=== PATIENT | female | born 1950 | race Caucasian/White ===

== ENCOUNTER 2016-11-01 14:34 | Emergency (ER) | payer MEDICARE, OTHER ==
[~2016-11-01] VITALS: Ht 165.1 cm; Wt 73.0 kg
[~2016-11-01 14:34] MED LIST: DLN100 PO; HYDC25 PO; LAMO200T38 PO; POTA-327 PO
[2016-11-01 14:41] VITALS: TEMP 36.9; Ht 165.1 cm; Wt 73.0 kg
[2016-11-01] MEDS ORDERED: SODIUM CHLORIDE 0.9% 1000ML 1,000 ML IV STA (14:53)
[2016-11-01 15:15] VITALS: O2SAT 98
[2016-11-01] MEDS ORDERED: CHOL1000 PO (15:22)
[2016-11-01] MEDS ORDERED: VBRT100 PO (15:23)
[2016-11-01] MEDS ORDERED: FSMD/70 PO (15:23)
--- NOTE | 2016-11-01 15:27 | DIAGNOSTIC IMAGING REPORT ---
CHEST ONE VIEW PORTABLE CLINICAL HISTORY: Weakness. Trauma. COMPARISON STUDY: No previous studies for comparison. FINDINGS: The heart is normal in size. There is aortic tortuosity/ectasia. There is diffuse elevation of the interstitium, possibly secondary to pulmonary vascular congestion. A bilateral inflammatory process could appear similar. Clinical and radiographic follow-up is recommended[ IMPRESSION: 1. Moderate aortic tortuosity/ectasia 2. Diffuse elevation of the interstitium. This could be secondary to pulmonary vascular congestion or a bilateral inflammatory process. Clinical and radiographic follow-up is recommended. Electronically signed by: Ray Escobar M.D. 11/01/2016 3:24 PM Dictated Date/Time: 11/01/2016 3:23 PM
[2016-11-01 15:28] LABS: BASO % 0.4 %; BASO ABS # 0.03 K/uL (0-0.2); COMPLETE YES; EOS % 0.4 %; HEMATOCRIT 38.9 % (37-47); IG% 0.5 %; LYMPH % 20.4 %; LYMPH ABS # 1.67 K/uL (1.2-3.4); MEAN CELL VOLUME 95.6 fL (80-100); MEAN CORPUSCULAR HEMOGLOBIN 32.7 pg (25-34); MEAN CORPUSCULAR HGB CONC 34.2 g/dl (32-36); MEAN PLATELET VOLUME 9.3 fL (7.4-10.4); MONO % 10.5 %; NEUT % 67.8 %; PLATELET COUNT 236 K/uL (130-400); RED BLOOD COUNT 4.07 M/uL (4.2-5.4); WHITE BLOOD COUNT 8.17 K/uL (4.8-10.8)
[2016-11-01 15:36] LABS: INR 1.1 (0.9-1.1); PROTHROMBIN TIME (PATIENT) 11.3 SECONDS (9.0-12.0)
[2016-11-01 15:48] LABS: URINE APPEARANCE CLEAR (CLEAR); URINE BILIRUBIN NEG (NEG); URINE COLOR YELLOW; URINE NITRITE NEG (NEG); URINE SPECIFIC GRAVITY 1.012 (1.000-1.030); UROBILINOGEN NEG (NEG)
[2016-11-01 15:55] LABS: MANUAL MICROSCOPIC REQUIRED? NO; REVIEW REQ? NO
[2016-11-01 15:57] LABS: ALT/SGPT 24 U/L (12-78); BLOOD UREA NITROGEN 30 mg/dl (7-18); BUN/CREATININE RATIO 21.2 (10-20); CALCIUM 9.6 mg/dl (8.5-10.1); CHLORIDE 98 mmol/L (98-107)
[2016-11-01 15:58] LABS: GLUCOSE 98 mg/dl (70-99); POTASSIUM 3.9 mmol/L (3.5-5.1); SODIUM 137 mmol/L (136-145)
[2016-11-01 15:59] LABS: ALKALINE PHOSPHATASE 145 U/L (45-117); AST/SGOT 20 U/L (15-37); CARBON DIOXIDE 27 mmol/L (21-32); MAGNESIUM 1.6 mg/dl (1.8-2.4)
[2016-11-01] MEDS ORDERED: OPTIRAY 320 IV PRN (16:30)
--- NOTE | 2016-11-01 17:22 | DIAGNOSTIC IMAGING REPORT ---
HEAD CT NONCONTRAST CT DOSE: HISTORY: EVALUATE WEAKNESS TECHNIQUE: Multiaxial CT images of the head were performed without the use of intravenous contrast. Automated exposure control was utilized for this study. Comparison: None. Findings: Near complete opacification of the left maxillary sinus due to a fluid level. There is a small fluid level within the right maxillary sinus. The mastoid air cells are clear. The calvarium and skull base are intact. There is cerebellar atrophy. Marked dilatation of the right lateral ventricle with encephalomalacia of the right frontal lobe. 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 There is no mass, hematoma, midline shift shift, acute infarct. Impression: Chronic changes as described above. No acute intracranial abnormality. Bilateral acute maxillary sinusitis Electronically signed by: Raghav Sepulveda M.D. 11/01/2016 5:20 PM Dictated Date/Time: 11/01/2016 5:17 PM
--- NOTE | 2016-11-01 17:48 | DIAGNOSTIC IMAGING REPORT ---
CHEST, ABDOMEN, and PELVIS CTA for AORTIC DISSECTION CT DOSE: 3812.07 mGy.cm HISTORY: Atypical chest pain. TECHNIQUE: Multiaxial CT images of the chest, abdomen, and pelvis were performed both before and after the intravenous administration of contrast to evaluate the aorta. Maximal intensity projection images were also obtained. COMPARISON STUDY: Chest 11/01/2016. FINDINGS: No evidence for an intramural hematoma within the aorta. A 2.2 cm left adrenal gland nodule demonstrates average Hounsfield units of less than 10 on the noncontrast images. Therefore, this is consistent with a benign adenoma. The heart is mildly enlarged. No pleural or pericardial effusions. There is an old L1 mild compression deformity. The central pulmonary arteries are patent. Normal caliber aorta with no evidence for dissection. Mild calcified plaque at the bilateral renal arteries. A left retroaortic renal vein. The bilateral iliac arteries are patent. No mediastinal or hilar lymphadenopathy. No pneumothorax. The central airways are patent. Motion artifact seen within the lungs. There is a mosaic attenuation to the lungs suggestive of air trapping. A 6 mm left lower lobe pulmonary nodule on image 31 of 60. A 5 mm pulmonary nodule within the left lower lobe on image 149 of 606. Small patchy groundglass densities within the right middle lobe and right lower lobe. There is a 6 mm nodule within the right lower lobe on image 155. No pneumoperitoneum or pneumatosis. Old left anterior eighth and ninth rib fractures. Cholelithiasis. The liver, spleen, right adrenal gland, and pancreas are unremarkable. No renal stones or hydronephrosis. Bilateral renal hypodense lesions. There is a 3.8 cm hypodense lesion within the right kidney and a 2.3 cm hypodense lesion within the lower pole the left kidney. These are consistent with cysts. Some of the renal lesions are subcentimeter in size and therefore too small to characterize but also likely represent cysts. No retroperitoneal lymphadenopathy. The bladder, uterus, bilateral adnexa are unremarkable. Colonic diverticulosis. No bowel wall thickening or obstruction. Normal appendix. IMPRESSION: 1. No evidence for an aortic dissection. 2. No evidence for central pulmonary embolus. 3. Bilateral subcentimeter indeterminate pulmonary nodules with the largest measuring 6 mm. Please refer to the chart below for recommended follow-up. 4. Mosaic attenuation to the lungs suggestive of air trapping in the setting of small airways disease. 5. Small patchy density seen within the right middle lobe and right lower lobe. This may represent a developing pneumonia. 6. Cholelithiasis. 7. Additional findings as described above. Please refer to below summary of Fleischner criteria recommendations for follow-up of incidental CT nodules (Marylou Meyers, Guidelines for management of small pulmonary nodules detected on CT scans: A statement from the Fleischner Society, Radiology 237: [id number].) Low Risk Patient: Minimal or no smoking or other known risk factors for malignancy <=4 mm: No follow-up needed. >4-6 mm: Initial follow-up CT at 12 months; if unchanged, no further follow-up. >6-8 mm: Initial follow-up CT at 6-12 months then at 18-24 months if no change. >8 mm: Follow-up CT at \R\3, 9, 24 months, or PET and/or biopsy. High Risk Patient: History of smoking or other known risk factors <=4 mm: Follow-up at 12 months; if unchanged, no further follow-up. >4-6 mm: Initial follow-up CT at 6-12 months then at 18-24 months if no change. >6-8 mm: Initial follow-up CT at 3-6 months then at 9-12 and 24 months if no change. >8 mm: Same as low risk patient. Note: Nodule size measured as average of length and width. Ground glass or partly solid nodules may require longer follow-up to exclude indolent adenocarcinoma. Electronically signed by: Raghav Sepulveda M.D. 11/01/2016 5:46 PM Dictated Date/Time: 11/01/2016 5:33 PM
[2016-11-01] MEDS ORDERED: LEVOFLOXACIN 750 MG TAB PO STA (18:04)
[2016-11-01] MEDS ORDERED: LEVO750T23 PO (18:40)
[2016-11-01 20:16] VITALS: BP 112/78; PULSE 58; O2SAT 100
--- NOTE | 2016-11-01 22:43 | EMERGENCY ROOM VISIT NOTE ---
History Report prepared by Gerry: Sailaja Robertson Under the Supervision of: Dr. Honorio Mendez M.D. First contact with patient: 14:44 Chief Complaint: FALL Stated Complaint: FALL History of Present Illness The patient is a 66 year old female who presents to the Emergency Room with complaints of several falls that occurred prior to arrival. She has a history of cerebral palsy, seizures and an unsteady gait and has fallen 4 times so far today. She reports she "tripped over something" which is what caused each of her falls today, but the staff at her personal half-way, [facility], became concerned that this was unusual for her, so they brought her to the ED. The patient denies taking any seizures today or sustaining any injuries during each fall. She states she feels well currently, but has noticed some minor bruises over her body as the day has progressed. She denies any previous history of TIA's or CVA's. The patient notes she is currently on Doxycycline for "cold symptoms", prescribed by J[facility] Dorsey at [facility]. She denies any LOC, headache, fevers, chills, diaphoresis, visual changes, neck pain, chest pain, breathing difficulties, nausea, vomiting, abdominal pain, back pain, melena, hematochezia, urinary symptoms, numbness, weakness, lymphadenopathy, rash, or other complaints. Source of History: patient, nursing staff Onset: MEDIA BUYER Position: other (global) Timing: resolved Modifying Factors (Worsening): other (tripping over "something") Review of Systems See HPI for pertinent positives and negatives. A total of ten systems were reviewed and were otherwise negative. Past Medical & Surgical Medical Problems: (1) Cerebral palsy (2) Hypertension (3) Seizure disorder Social History Smoking Status: Never Smoker Alcohol Use: none Drug Use: none Marital Status: Housing Status: long-term Occupation Status: disabled Current/Historical Medications Scheduled Alendronate/Cholecalciferol (Fosamax+D 70MG/2800 Iu), 1 TABLET PO WK Cholecalciferol (Vitamin D3), 5,000 UNITS PO DAILY Doxycycline Hyclate (Doxycycline Hyclate), 100 MG PO BID Hydrochlorothiazide (Hctz *), 25 MG PO QAM Lamotrigine (Lamictal), 200 MG PO BID Levofloxacin (Levaquin), 1 TAB PO DAILY Phenytoin Sodium (Dilantin *), 100 MG PO BID Potassium Ext Rel (Klor-Con), 20 MEQ PO QAM Potassium Ext Rel (Klor-Con), 10 MEQ PO QPM Allergies Coded Allergies: Furosemide (Unverified Allergy, Severe, 11/01/16) Meclizine (Unverified Allergy, Unknown, UNKNOWN, 11/01/16) Primidone (Verified Allergy, Unknown, `, 06/24/11) Physical Exam Vital Signs Date Time Temp Pulse Resp B/P Pulse Ox O2 Delivery O2 Flow Rate FiO2 11/01/16 20:16 58 18 112/78 100 11/01/16 16:53 94 18 154/75 99 11/01/16 16:13 69 11/01/16 15:15 98 Room Air 11/01/16 14:41 36.9 69 18 172/84 98 Room Air Physical Exam GENERAL: Awake, alert, well-appearing, in no distress HENT: Normocephalic, atraumatic. Oropharynx unremarkable. Disconjugate gaze. EYES: Normal conjunctiva. Sclera non-icteric. PERRL. NECK: Supple. No nuchal rigidity. FROM. No JVD. RESPIRATORY: Clear to auscultation. CARDIAC: Regular rate, normal rhythm. Extremities warm and well perfused. Pulses equal. ABDOMEN: Soft, non-distended. No tenderness to palpation. No rebound or guarding. No masses. RECTAL: Deferred. MUSCULOSKELETAL: Chest examination reveals no tenderness. The back is symmetrical on inspection without obvious abnormality. There is no CVA tenderness to palpation. No joint edema. Abrasion on the left bicep, no tenderness. Abrasion on the right forearm, no tenderness. LOWER EXTREMITIES: Calves are equal size bilaterally and non-tender, good ROM. No edema. No discoloration. NEURO: Normal sensorium. Mild spasticity noted to the left hand. SKIN: No rash or jaundice noted. Medical Decision & Procedures ER Provider Diagnostic Interpretation: This X-Ray was reviewed and interpreted by myself and the radiologist. CHEST ONE VIEW PORTABLE CLINICAL HISTORY: Weakness. Trauma. COMPARISON STUDY: No previous studies for comparison. FINDINGS: The heart is normal in size. There is aortic tortuosity/ectasia. There is diffuse elevation of the interstitium, possibly secondary to pulmonary vascular congestion. A bilateral inflammatory process could appear similar. Clinical and radiographic follow-up is recommended. IMPRESSION: 1. Moderate aortic tortuosity/ectasia 2. Diffuse elevation of the interstitium. This could be secondary to pulmonary vascular congestion or a bilateral inflammatory process. Clinical and radiographic follow-up is recommended. Electronically signed by: Ray Escobar M.D. 11/01/2016 3:24 PM Dictated Date/Time: 11/01/2016 3:[address] scans were reviewed and interpreted by the radiologist and reviewed by myself. HEAD CT NONCONTRAST CT DOSE: HISTORY: EVALUATE WEAKNESS TECHNIQUE: Multiaxial CT images of the head were performed without the use of intravenous contrast. Automated exposure control was utilized for this study. Comparison: None. Findings: Near complete opacification of the left maxillary sinus due to a fluid level. There is a small fluid level within the right maxillary sinus. The mastoid air cells are clear. The calvarium and skull base are intact. There is cerebellar atrophy. Marked dilatation of the right lateral ventricle with encephalomalacia of the right frontal lobe. 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 There is no mass, hematoma, midline shift shift, acute infarct. Impression: Chronic changes as described above. No acute intracranial abnormality. Bilateral acute maxillary sinusitis Electronically signed by: Raghav Sepulveda M.D. 11/01/2016 5:20 PM Dictated Date/Time: 11/01/2016 5:17 PM CHEST, ABDOMEN, and PELVIS CTA for AORTIC DISSECTION CT DOSE: 3812.07 mGy.cm HISTORY: Atypical chest pain. TECHNIQUE: Multiaxial CT images of the chest, abdomen, and pelvis were performed both before and after the intravenous administration of contrast to evaluate the aorta. Maximal intensity projection images were also obtained. COMPARISON STUDY: Chest 11/01/2016. FINDINGS: No evidence for an intramural hematoma within the aorta. A 2.2 cm left adrenal gland nodule demonstrates average Hounsfield units of less than 10 on the noncontrast images. Therefore, this is consistent with a benign adenoma. The heart is mildly enlarged. No pleural or pericardial effusions. There is an old L1 mild compression deformity. The central pulmonary arteries are patent. Normal caliber aorta with no evidence for dissection. Mild calcified plaque at the bilateral renal arteries. A left retroaortic renal vein. The bilateral iliac arteries are patent. No mediastinal or hilar lymphadenopathy. No pneumothorax. The central airways are patent. Motion artifact seen within the lungs. There is a mosaic attenuation to the lungs suggestive of air trapping. A 6 mm left lower lobe pulmonary nodule on image 31 of 60. A 5 mm pulmonary nodule within the left lower lobe on image 149 of 606. Small patchy groundglass densities within the right middle lobe and right lower lobe. There is a 6 mm nodule within the right lower lobe on image 155. No pneumoperitoneum or pneumatosis. Old left anterior eighth and ninth rib fractures. Cholelithiasis. The liver, spleen, right adrenal gland, and pancreas are unremarkable. No renal stones or hydronephrosis. Bilateral renal hypodense lesions. There is a 3.8 cm hypodense lesion within the right kidney and a 2.3 cm hypodense lesion within the lower pole the left kidney. These are consistent with cysts. Some of the renal lesions are subcentimeter in size and therefore too small to characterize but also likely represent cysts. No retroperitoneal lymphadenopathy. The bladder, uterus, bilateral adnexa are unremarkable. Colonic diverticulosis. No bowel wall thickening or obstruction. Normal appendix. IMPRESSION: 1. No evidence for an aortic dissection. 2. No evidence for central pulmonary embolus. 3. Bilateral subcentimeter indeterminate pulmonary nodules with the largest measuring 6 mm. Please refer to the chart below for recommended follow-up. 4. Mosaic attenuation to the lungs suggestive of air trapping in the setting of small airways disease. 5. Small patchy density seen within the right middle lobe and right lower lobe. This may represent a developing pneumonia. 6. Cholelithiasis. 7. Additional findings as described above. Please refer to below summary of Fleischner criteria recommendations for follow-up of incidental CT nodules (Marylou Meyers, Guidelines for management of small pulmonary nodules detected on CT scans: A statement from the Fleischner Society, Radiology 237: [phone].) Low Risk Patient: Minimal or no smoking or other known risk factors for malignancy <=4 mm: No follow-up needed. >4-6 mm: Initial follow-up CT at 12 months; if unchanged, no further follow-up. >6-8 mm: Initial follow-up CT at 6-12 months then at 18-24 months if no change. >8 mm: Follow-up CT at \\R\\3, 9, 24 months, or PET and/or biopsy. High Risk Patient: History of smoking or other known risk factors <=4 mm: Follow-up at 12 months; if unchanged, no further follow-up. >4-6 mm: Initial follow-up CT at 6-12 months then at 18-24 months if no change. >6-8 mm: Initial follow-up CT at 3-6 months then at 9-12 and 24 months if no change. >8 mm: Same as low risk patient. Note: Nodule size measured as average of length and width. Ground glass or partly solid nodules may require longer follow-up to exclude indolent adenocarcinoma. Electronically signed by: Raghav Sepulveda M.D. 11/01/2016 5:46 PM Dictated Date/Time: 11/01/2016 5:33 PM Laboratory Results 11/01/16 15:00 Red Blood Count 4.07, Mean Corpuscular Volume 95.6, Mean Corpuscular Hemoglobin 32.7, Mean Corpuscular Hemoglobin Concent 34.2, Mean Platelet Volume 9.3, Neutrophils (%) (Auto) 67.8, Lymphocytes (%) (Auto) 20.4, Monocytes (%) (Auto) 10.5, Eosinophils (%) (Auto) 0.4, Basophils (%) (Auto) 0.4, Neutrophils # (Auto ) 5.54, Lymphocytes # (Auto) 1.67, Monocytes # (Auto) 0.86, Eosinophils # (Auto ) 0.03, Basophils # (Auto) 0.03 11/01/16 15:00 Test 11/01/16 15:00 11/01/16 15:30 White Blood Count 8.17 K/uL (4.8-10.8) Red Blood Count 4.07 M/uL (4.2-5.4) Hemoglobin 13.3 g/dL (12.0-16.0) Hematocrit 38.9 % (37-47) Mean Corpuscular Volume 95.6 fL (80-100) Mean Corpuscular Hemoglobin 32.7 pg (25-34) Mean Corpuscular Hemoglobin Concent 34.2 g/dl (32-36) Platelet Count 236 K/uL (130-400) Mean Platelet Volume 9.3 fL (7.4-10.4) Neutrophils (%) (Auto) 67.8 % Lymphocytes (%) (Auto) 20.4 % Monocytes (%) (Auto) 10.5 % Eosinophils (%) (Auto) 0.4 % Basophils (%) (Auto) 0.4 % Neutrophils # (Auto) 5.54 K/uL (1.4-6.5) Lymphocytes # (Auto) 1.67 K/uL (1.2-3.4) Monocytes # (Auto) 0.86 K/uL (0.11-0.59) Eosinophils # (Auto) 0.03 K/uL (0-0.5) Basophils # (Auto) 0.03 K/uL (0-0.2) RDW Standard Deviation 43.6 fL (36.4-46.3) RDW Coefficient of Variation 12.6 % (11.5-14.5) Immature Granulocyte % (Auto) 0.5 % Immature Granulocyte # (Auto) 0.04 K/uL (0.00-0.02) Prothrombin Time 11.3 SECONDS (9.0-12.0) Prothromb Time International Ratio 1.1 (0.9-1.1) Activated Partial Thromboplast Time 25.4 SECONDS (21.0-31.0) Partial Thromboplastin Ratio 1.0 Anion Gap 12.0 mmol/L (3-11) Est Creatinine Clear Calc Drug Dose 38.5 ml/min Estimated GFR () 44.6 Estimated GFR (Non- 38.5 BUN/Creatinine Ratio 21.2 (10-20) Calcium Level 9.6 mg/dl (8.5-10.1) Magnesium Level 1.6 mg/dl (1.8-2.4) Total Bilirubin 0.4 mg/dl (0.2-1) Direct Bilirubin mg/dl (0-0.2) Aspartate Amino Transf (AST/SGOT) 20 U/L (15-37) Alanine Aminotransferase (ALT/SGPT) 24 U/L (12-78) Alkaline Phosphatase 145 U/L (45-117) Troponin I < 0.015 ng/ml (0-0.045) Pro-B-Type Natriuretic Peptide 310 pg/ml (0-900) Total Protein 7.0 gm/dl (6.4-8.2) Albumin 3.3 gm/dl (3.4-5.0) Lipase 193 U/L (73-393) Thyroid Stimulating Hormone (TSH) 1.060 uIu/ml (0.300-4.500) Chemistry Specimen Hemolysis Phenytoin (Dilantin) Level 12.8 mcg/mL (10-20) Urine Color YELLOW Urine Appearance CLEAR (CLEAR) Urine pH 6.0 (4.5-7.5) Urine Specific [place] 1.012 (1.000-1.030) Urine Protein NEG (NEG) Urine Glucose (UA) NEG (NEG) Urine Ketones NEG (NEG) Urine Occult Blood 1+ (NEG) Urine Nitrite NEG (NEG) Urine Bilirubin NEG (NEG) Urine Urobilinogen NEG (NEG) Urine Leukocyte Esterase NEG (NEG) Urine WBC (Auto) 1-5 /hpf (0-5) Urine RBC (Auto) 5-10 /hpf (0-4) Urine Hyaline Casts (Auto) 1-5 /lpf (0-5) Urine Epithelial Cells (Auto) 5-10 /lpf (0-5) Urine Bacteria (Auto) NEG (NEG) Laboratory results reviewed by me Medications Administered Medications (Trade) Dose Ordered Sig/Rupert Route Start Time Stop Time Status Last Admin Dose Admin Sodium Chloride (Nss 1000ml) 1,000 ml @ 125 mls/hr Q8H STAT IV 11/01/16 14:53 11/01/16 20:47 DC 11/01/16 15:40 125 MLS/HR Levofloxacin (Levaquin Tab) 750 mg NOW STAT PO 11/01/16 18:04 11/01/16 18:07 DC 11/01/16 18:44 750 MG ECG Indication: weakness (fall) Rate (beats per minute): 69 Rhythm: sinus rhythm Findings: no acute ischemic change, no ectopy, other (LVH, poor baseline) ED Course 1450: The patient was evaluated in room B3B. A complete history and physical exam was performed. 1453: NSS 1000 ml @ 125 mls/hr IV. 1708: I reevaluated the patient. She has just come back from CT scan and is resting comfortably. 1804: Levaquin 750 mg PO. 1824: I reevaluated the patient. She is feeling much better. I discussed her results and discharge instructions and she verbalized complete agreement and understanding. Medical Decision Triage Nursing notes reviewed. The patient's presentation and history were concerning for multiple falls. Etiologies such as metabolic, infection, hypo/hyperglycemia, electrolyte abnormalities, cardiac sources, intracerebral event, toxicologic, neurologic, as well as others were entertained. Given the patient's history she underwent a full metabolic workup. Blood work was obtained. Her CBC, chemistry panel, urinalysis, cardiac markers, and BNP were negative. TSH is normal. The patient was doing very well. Dilantin is therapeutic. ECG and chest x-ray were unremarkable except she had a wide mediastinum. The patient underwent CT imaging. This revealed some pulmonary nodules but also small infiltrate. This may be why she has been slightly unsteady. She does not have any significant fever or leukocytosis. I discussed conservative management. The patient was hydrated. She feels well and comfortable going home. She'll need a close outpatient follow-up. She was treated with Levaquin.I gave my usual and customary discussion regarding this issue. By the evaluation outlined above other emergent etiologies such as those listed in the differential, as well as others, were deemed relatively unlikely. The patient was informed about the findings as listed above. All questions were answered and she was very pleased with the treatment. Return instructions were outlined and the patient was discharged in stable condition. The patient was referred to her PCP for follow-up for a recheck of the current condition. The chart was completed utilizing [employer] Speech voice recognition software. Grammatical errors, random word insertions, pronoun errors, and incomplete sentences are an occasional consequence of this system due to software limitations, ambient noise, and hardware issues. Any formal questions or concerns about the content, text, or information contained within the body of this dictation should be directly addressed to the physician for clarification. Impression Primary Impression: Pneumonia Additional Impressions: Fall, Ambulatory dysfunction Scribe Attestation The scribe's documentation has been prepared under my direction and personally reviewed by me in its entirety. I confirm that the note above accurately reflects all work, treatment, procedures, and medical decision making performed by me. Departure Information Dispostion Other (Prison) Prescriptions Levofloxacin (LEVAQUIN) 750 Mg Tab 1 TAB PO DAILY for 4 Days, #4 TAB Prov: Honorio Mendez MD 11/01/16 Referrals Ny HollidayC.R.N.PEmily (PCP) Patient Instructions A Signature Page, My [facility] Additional Instructions PNEUMONIA INSTRUCTIONS: CT of the chest scan did reveal a small area of pneumonia on the right side. There is also a 6 mm nodule noted on the bottom of the right and left lung. Follow-up is recommended with your primary physician for repeat chest imaging at 6-12 months and then again at 18-24 months. Dilantin level normal. CAT scan of the head was normal. Levafloxacin(Levaquin) 750mg: Take one pill daily for 4 additional days for your infection. All antibiotics can cause diarrhea. If this occurs and you feel worse or it does not resolve in 1-2 days follow up with your doctor or return to the Emergency Department as this could be signs of serious underlying problems. Any medication can cause an allergic reaction, stop the pills immediately and return to the ER for rash, hives, breathing difficulties, or swelling. Acetaminophen(Tylenol) may be used for fever or pain. Use 1000mg every six hours as needed. Avoid using more than 4000mg in a 24 hour period. Controlling your fever with Tylenol and Ibuprofen as above will make you feel better. Rest and drink plenty of fluids. Avoid strenuous activity until your symptoms resolve and your breathing returns to normal. Return to the ER for chest pain, difficulty breathing, persistent fevers, vomiting, worsening of your condition, or as needed. Continue current medications. Follow up with your primary physician this week as scheduled for a recheck of the current condition.
== END 2016-11-01 20:17 | disposition home or self-care (01) ==
LOC: EDBD 14:34 → C.EDB 14:35
DX: T14.8 Other injury of unspecified body region (principal); W01.0XXA Fall on same level from slipping, tripping and stumbling without subsequent striking against object, initial encounter; J18.9 Pneumonia, unspecified organism; I10 Essential (primary) hypertension; G40.909 Epilepsy, unspecified, not intractable, without status epilepticus; G80.9 Cerebral palsy, unspecified; Z79.899 Other long term (current) drug therapy; Z88.8 Allergy status to other drugs, medicaments and biological substances

== ENCOUNTER 2016-11-03 00:25 | Inpatient (IN) | payer OTHER ==
[~2016-11-03] VITALS: Ht 157.5 cm; Wt 90.8 kg
[2016-11-03] VITALS (8 sets, daily range): BP systolic 115–144; BP diastolic 59–91; PULSE 69–76; TEMP 36.3–36.7; O2SAT 95–99; Ht 157.5 cm; Wt 90.8 kg
[~2016-11-03 00:25] MED LIST changes: +CHOL1000 PO; +FSMD/70 PO; +LEVO750T23 PO; +VBRT100 PO
[2016-11-03] MEDS ORDERED: CALC600T9 PO (00:47)
[2016-11-03] MEDS ORDERED: ACET-1256 PO (00:49)
[2016-11-03] MEDS ORDERED: SODIUM CHLORIDE 0.9% 1000ML 1,000 ML IV STA (00:50)
[2016-11-03] MEDS ORDERED: ONDA4TAB46 PO (00:51)
[2016-11-03] MEDS ORDERED: HYDR1SUS2 PO (00:53)
[2016-11-03] MEDS ORDERED: PHEN-488 PO (01:04)
--- NOTE | 2016-11-03 01:12 | EMERGENCY ROOM VISIT NOTE ---
History Report prepared by Gerry: Lizette Fan Under the Supervision of: Dr. Seth Padilla M.D. First contact with patient: 00:43 Chief Complaint: FALL Stated Complaint: ALTERED MENTAL STATUS/SIDE PAIN/FALL History of Present Illness The patient is a 66 year old female who presents to the Emergency Room via EMS with complaints of right sided rib pain. She reports a fall and hitting her head. She denies headache, shoulder pain, back pain, or any other complaints. As per prior records, the patient has been on doxycycline for a cold for the past few days. She has had multiple increased falls. She was evaluated in the Emergency Room 2 days ago for a fall. She had a CT of chest, abdomen, and pelvis. The patient was diagnosed with a small pneumonia. She has a history of cerebral palsy. HPI is limited secondary to altered mental status. Source of History: patient History Limited By: AMS Position: other (right sided ribs) Associated Symptoms: No back pain, No headache Review of Systems ROS is limited secondary to altered mental status. Past Medical & Surgical Medical Problems: (1) Ambulatory dysfunction (2) Cerebral palsy (3) Fall (4) Hypertension (5) Pneumonia (6) Seizure disorder Family History Patient reports no known family medical history. Social History Smoking Status: Never Smoker Alcohol Use: none Drug Use: none Marital Status: Housing Status: senior living Occupation Status: disabled Current/Historical Medications Scheduled Alendronate/Cholecalciferol (Fosamax+D 70MG/2800 Iu), 1 TABLET PO WK Calcium Carbonate-Vitamin D (Calcium + D), 2 TABS PO DAILY Cholecalciferol (Vitamin D3), 5,000 UNITS PO DAILY Doxycycline Hyclate (Doxycycline Hyclate), 100 MG PO BID Hydrochlorothiazide (Hctz *), 25 MG PO QAM Lamotrigine (Lamictal), 200 MG PO BID Phenytoin Sodium (Dilantin *), 100 MG PO BID Potassium Ext Rel (Klor-Con), 20 MEQ PO QAM Potassium Ext Rel (Klor-Con), 10 MEQ PO QPM Scheduled PRN Acetaminophen (Tylenol), 1,000 MG PO q4-6 hours PRN for Pain or Fever Ondansetron Hcl (Zofran), 4 MG PO DIRECTED PRN for Nausea Phenylephrine W/ Dm-Gg (Tussin Cf), 10 ML PO Q4 PRN for Cough Allergies Coded Allergies: Furosemide (Unverified Allergy, Severe, 11/03/16) Meclizine (Unverified Allergy, Unknown, UNKNOWN, 11/03/16) Primidone (Verified Allergy, Unknown, `, 11/03/16) Physical Exam Vital Signs Date Time Temp Pulse Resp B/P Pulse Ox O2 Delivery O2 Flow Rate FiO2 11/03/16 03:10 72 20 161/62 94 Room Air 11/03/16 00:31 36.4 70 18 161/73 94 Room Air Physical Exam GENERAL: Patient is well appearing and in mild distress. HEENT: No acute trauma, normocephalic atraumatic, mucous membranes moist, no nasal congestion, no scleral icterus. NECK: No stridor, no adenopathy, no meningismus, trachea is midline. LUNGS: Crackles throughout bilateral lower bases. HEART: Regular rate and rhythm. No murmurs, rubs, gallops appreciated. CHEST: Tenderness to palpation of the right chest wall. ABDOMEN: Soft, nontender, bowel sounds positive, no masses appreciated, no peritonitis. BACK: No midline tenderness, no CVA tenderness EXTREMITIES: Normal motion all extremities, no cyanosis, no edema. NEUROLOGIC: MRCP, answers questions in yes and no. No acute motor or sensory deficits, no focal weakness, cranial nerves grossly intact. SKIN: No rash, no jaundice, no diaphoresis. Medical Decision & Procedures ER Provider Diagnostic Interpretation: X ray results are stated below per my interpretation: CHEST X-RAY Right perihilar infiltrate, similar to previous chest x-ray. No evidence of acute rib fracture nor pneumothorax appreciated. Overall similar to previous chest x-ray. ONE VIEW PELVIS X-RAY Mild degenerative changes, no fracture, no dislocation. Laboratory Results 11/03/16 01:10 Red Blood Count 4.15, Mean Corpuscular Volume 96.9, Mean Corpuscular Hemoglobin 32.5, Mean Corpuscular Hemoglobin Concent 33.6, Mean Platelet Volume 9.1, Neutrophils (%) (Auto) 78.5, Lymphocytes (%) (Auto) 11.0, Monocytes (%) (Auto) 9.4, Eosinophils (%) (Auto) 0.0, Basophils (%) (Auto) 0.5, Neutrophils # (Auto) 4.95, Lymphocytes # (Auto) 0.69, Monocytes # (Auto) 0.59, Eosinophils # (Auto) 0.00, Basophils # (Auto) 0.03 11/03/16 01:10 Test 11/03/16 01:09 11/03/16 01:10 Bedside Lactic Acid Venous 0.96 mmol/L (0.90-1.70) White Blood Count 6.30 K/uL (4.8-10.8) Red Blood Count 4.15 M/uL (4.2-5.4) Hemoglobin 13.5 g/dL (12.0-16.0) Hematocrit 40.2 % (37-47) Mean Corpuscular Volume 96.9 fL (80-100) Mean Corpuscular Hemoglobin 32.5 pg (25-34) Mean Corpuscular Hemoglobin Concent 33.6 g/dl (32-36) Platelet Count 231 K/uL (130-400) Mean Platelet Volume 9.1 fL (7.4-10.4) Neutrophils (%) (Auto) 78.5 % Lymphocytes (%) (Auto) 11.0 % Monocytes (%) (Auto) 9.4 % Eosinophils (%) (Auto) 0.0 % Basophils (%) (Auto) 0.5 % Neutrophils # (Auto) 4.95 K/uL (1.4-6.5) Lymphocytes # (Auto) 0.69 K/uL (1.2-3.4) Monocytes # (Auto) 0.59 K/uL (0.11-0.59) Eosinophils # (Auto) 0.00 K/uL (0-0.5) Basophils # (Auto) 0.03 K/uL (0-0.2) RDW Standard Deviation 44.9 fL (36.4-46.3) RDW Coefficient of Variation 12.8 % (11.5-14.5) Immature Granulocyte % (Auto) 0.6 % Immature Granulocyte # (Auto) 0.04 K/uL (0.00-0.02) Anion Gap 11.0 mmol/L (3-11) Est Creatinine Clear Calc Drug Dose 44.7 ml/min Estimated GFR () 48.8 Estimated GFR (Non- 42.1 BUN/Creatinine Ratio 21.1 (10-20) Calcium Level 9.0 mg/dl (8.5-10.1) Laboratory results as reviewed by me. Medications Administered Medications (Trade) Dose Ordered Sig/Rupert Route Start Time Stop Time Status Last Admin Dose Admin Sodium Chloride (Nss 1000ml) 1,000 ml @ 75 mls/hr [id number] STAT IV 11/03/16 00:50 11/03/16 03:36 DC 11/03/16 01:10 75 MLS/HR ED Course 0043: The patient was evaluated in room A10. A complete history and physical exam was performed. 0050: Sodium Chloride 1000 ml @ 75 mls/hr IV 0152: I discussed the patient's case with Dr. Blanton, from [facility]. Upon reevaluation, the patient is resting comfortably. Discussed results and treatment plan with the patient. The patient will be evaluated for further management. Medical Decision Differential: Sepsis, Infectious (UTI/Pneumonia/Meningitis/etc), Metabolic/ Electrolyte Abnormality, Cardiac, Hepatic, Endocrine, Toxicologic, Neurologic, amongst other pathologies entertained. 66 yr old female with MRCP who until recently has been doing quite well though was diagnosed with URI like illness and started on doxycycline. Starting 3 days ago stared having multiple falls a day to point where brought in here for further evaluation where she had extensive testing, labs, CTs, etc which revealed a right middle/lower pneumonia. Found laying next to bed again this evening. No evidence of head injury and she denies headache. Given she will be watched held off on repeating CT head as on no blood thinners. She has no clear evidence of fractured ribs via single view CXR though right mid perihilar inflammation continues. Mild dehydration by labs stable from other day. She is clearly failing monitoring with this pneumonia a senior living and in effort to avoid further falls/injuries seems that bringing her in will be safest option. She is not septic and no in severe distress. Consults Time Called: 131 Consulting Physician: Dr. Blanton, from [facility] Returned Call: 015 I discussed the patient's case with Dr. Blanton, from [facility]. Impression Primary Impression: Multiple falls Additional Impression: Failure of outpatient treatment Scribe Attestation The scribe's documentation has been prepared under my direction and personally reviewed by me in its entirety. I confirm that the note above accurately reflects all work, treatment, procedures, and medical decision making performed by me. Departure Information Dispostion Being Evaluated By Hospitalist Referrals Ny Holliday,C.R.N.P. (PCP) Patient Instructions A Signature Page, My [facility] [address] Problem Qualifiers
[2016-11-03 01:24] LABS: BASO % 0.5 %; BASO ABS # 0.03 K/uL (0-0.2); COMPLETE YES; HEMATOCRIT 40.2 % (37-47); IG% 0.6 %; LYMPH ABS # 0.69 K/uL (1.2-3.4); MEAN CELL VOLUME 96.9 fL (80-100); MEAN CORPUSCULAR HEMOGLOBIN 32.5 pg (25-34); MEAN CORPUSCULAR HGB CONC 33.6 g/dl (32-36); MEAN PLATELET VOLUME 9.1 fL (7.4-10.4); MONO % 9.4 %; NEUT % 78.5 %; PLATELET COUNT 231 K/uL (130-400); RED BLOOD COUNT 4.15 M/uL (4.2-5.4)
[2016-11-03 01:43] LABS: BUN/CREATININE RATIO 21.1 (10-20); CREATININE 1.3 mg/dl (0.60-1.20); POTASSIUM 3.6 mmol/L (3.5-5.1)
[2016-11-03] MEDS ORDERED: CEFTRIAXONE SOD INJ 1 GM in DEXTROSE 5% ADD-VANTAGE 50ML 50 ML IV SCH (04:00)
[2016-11-03] MEDS: NSS + 20MEQ KCL 1000ML 1,000 ML IV SCH ×2 (04:15→13:39)
--- NOTE | 2016-11-03 04:50 | History and Physical ---
History & Physical Date & Time of Service: Nov 03, 2016 at 04:40 Chief Complaint: Failure Of Op Treatment, [place] Primary Care Physician: Ny Holliday,Gris History of Present Illness Source: hospital records The patient is a 66-year-old female with history of cerebral palsy, who is brought to the emergency department via EMS with complaint of right-sided rib pain. She fell early in the day and reports hitting her head. She denies headache, shoulder pain, back pain or any other areas of pain. She is reportedly started on doxycycline for a respiratory infection a few days ago, and since that time has had multiple falls. She had been seen in the emergency department 2 days previously for a fall, at that time had a CT of the chest, abdomen and pelvis and was diagnosed with a pneumonia and started on doxycycline at that time. Her history of present illness is severely limited due to altered mental status. Past Medical/Surgical History Medical Problems: (1) Ambulatory dysfunction Status: Resolved (2) Cerebral palsy Status: Chronic (3) Fall Status: Resolved (4) Hypertension Status: Chronic (5) Pneumonia Status: Resolved (6) Seizure disorder Status: Chronic Family History Patient reports no known family medical history. Social History Smoking Status: Never Smoker Smokeless Tobacco Use: No Alcohol Use: none Drug Use: none Marital Status: Housing status: lives with family Occupational Status: disabled Multi-Drug Resistant Organisms History of MDRO: No Allergies Coded Allergies: Furosemide (Unverified Allergy, Severe, 11/03/16) Meclizine (Unverified Allergy, Unknown, UNKNOWN, 11/03/16) Primidone (Verified Allergy, Unknown, `, 11/03/16) Home Medications Scheduled Alendronate/Cholecalciferol (Fosamax+D 70MG/2800 Iu), 1 TABLET PO WK Calcium Carbonate-Vitamin D (Calcium + D), 2 TABS PO DAILY Cholecalciferol (Vitamin D3), 5,000 UNITS PO DAILY Doxycycline Hyclate (Doxycycline Hyclate), 100 MG PO BID Hydrochlorothiazide (Hctz *), 25 MG PO QAM Lamotrigine (Lamictal), 200 MG PO BID Phenytoin Sodium (Dilantin *), 100 MG PO BID Potassium Ext Rel (Klor-Con), 20 MEQ PO QAM Potassium Ext Rel (Klor-Con), 10 MEQ PO QPM Scheduled PRN Acetaminophen (Tylenol), 1,000 MG PO q4-6 hours PRN for Pain or Fever Ondansetron Hcl (Zofran), 4 MG PO DIRECTED PRN for Nausea Phenylephrine W/ Dm-Gg (Tussin Cf), 10 ML PO Q4 PRN for Cough Review of Systems Review of systems is severely limited due to patient's altered mental status Physical Exam Vital Signs Date Time Temp Pulse Resp B/P Pulse Ox O2 Delivery O2 Flow Rate FiO2 11/03/16 03:10 72 20 161/62 94 Room Air 11/03/16 00:31 36.4 70 18 161/73 94 Room Air The patient is lethargic, only responds by grimacing, normocephalic and atraumatic, lying in bed and in no acute distress. HEENT--PERRL, EOMI, mucous membranes and oropharynx dry. Neck--supple, no JVD or bruits, thyroid normal, trachea midline, no adenopathy. Heart--normal S1 and S2, no extra beats, no murmurs, rubs or gallops. Lungs--clear bilaterally but diminished throughout, no respiratory distress, no accessory muscle use. Abdomen--normal bowel sounds and soft, nontender and nondistended, no hernias or masses, no organomegaly. Extremities--no cyanosis, clubbing or edema. There are good distal pulses b/l. Dermatologic--normal skin turgor, normal color, warm and dry, no abnormal lymph nodes, no rash. Neurologic--cranial nerves II through XII grossly intact, but examination is limited due to altered mental state. Rheumatologic--limited due to altered mental state Psychiatric--limited due to altered mental state Diagnostics Laboratory Results Results Past 24 Hours Test 11/03/16 01:09 11/03/16 01:10 Range/Units Bedside Lactic Acid Venous 0.96 0.90-1.70 mmol/L White Blood Count 6.30 4.8-10.8 K/uL Red Blood Count 4.15 4.2-5.4 M/uL Hemoglobin 13.5 12.0-16.0 g/dL Hematocrit 40.2 37-47 % Mean Corpuscular Volume 96.9 80-100 fL Mean Corpuscular Hemoglobin 32.5 25-34 pg Mean Corpuscular Hemoglobin Concent 33.6 32-36 g/dl Platelet Count 231 130-400 K/uL Mean Platelet Volume 9.1 7.4-10.4 fL Neutrophils (%) (Auto) 78.5 % Lymphocytes (%) (Auto) 11.0 % Monocytes (%) (Auto) 9.4 % Eosinophils (%) (Auto) 0.0 % Basophils (%) (Auto) 0.5 % Neutrophils # (Auto) 4.95 1.4-6.5 K/uL Lymphocytes # (Auto) 0.69 1.2-3.4 K/uL Monocytes # (Auto) 0.59 0.11-0.59 K/uL Eosinophils # (Auto) 0.00 0-0.5 K/uL Basophils # (Auto) 0.03 0-0.2 K/uL RDW Standard Deviation 44.9 36.4-46.3 fL RDW Coefficient of Variation 12.8 11.5-14.5 % Immature Granulocyte % (Auto) 0.6 % Immature Granulocyte # (Auto) 0.04 0.00-0.02 K/uL Sodium Level 138 136-145 mmol/L Potassium Level 3.6 3.5-5.1 mmol/L Chloride Level 98 98-107 mmol/L Carbon Dioxide Level 29 21-32 mmol/L Anion Gap 11.0 3-11 mmol/L Blood Urea Nitrogen 27 7-18 mg/dl Creatinine 1.30 0.60-1.20 mg/dl Est Creatinine Clear Calc Drug Dose 44.7 ml/min Estimated GFR () 48.8 Estimated GFR (Non- 42.1 BUN/Creatinine Ratio 21.1 10-20 Random Glucose 119 70-99 mg/dl Calcium Level 9.0 8.5-10.1 mg/dl Microbiology Results 11/03/16 Blood Culture, Received Pending 11/03/16 Blood Culture, Received Pending Impression Assessment and Plan Failure of outpatient treatment of pneumonia/URI--the patient will be admitted, and placed on ceftriaxone 1 g IV daily. Cerebral palsy, with increasing frequency of falls--we'll treat aggressively process as noted above, and consult social science manager. Seizure disorder --continue phenytoin sodium 100 mg by mouth twice a day, and lamotrigine 200 mg by mouth twice a day. Hypertension--hold HCTZ 25 mg every morning, and potassium extended release 20 mEq by mouth every morning and 10 mEq by mouth every afternoon. Dehydration--patient will be placed on normal saline with 20 mg once potassium at 100 mils per hour. And will be kept nothing by mouth except medications until hydration status improves and alertness improves. Level of Care Telemetry Advanced Directives Existing Advance Directive: No Existing Living Will: No Existing Power of Sheet Tailer: No Resuscitation Status FULL RESUSCITATION VTE Prophylaxis VTE Risk Assessment Done? Y/N: Yes Risk Level: Moderate Given or contraindicated: SCD's
--- NOTE | 2016-11-03 07:12 | DIAGNOSTIC IMAGING REPORT ---
SINGLE VIEW CHEST CLINICAL HISTORY: Fall. Right-sided chest wall pain. FINDINGS: An AP, portable, upright chest radiograph is compared to study dated 11/01/2016. Correlation is made with chest CT dated 11/01/2016. The heart is enlarged. There is mild pulmonary vascular congestion. Chronic interstitial thickening is unchanged. There are low lung volumes and bibasilar atelectasis. No airspace consolidation or large pleural effusion is identified. No pneumothorax is seen. The skeletal structures are osteopenic. There are healed left-sided rib fractures. IMPRESSION: 1. Cardiomegaly with mild pulmonary vascular congestion. 2. No focal airspace consolidation or large pleural effusion is identified. Electronically signed by: Yeyo Madrigal M.D. 11/03/2016 7:11 AM Dictated Date/Time: 11/03/2016 7:08 AM
--- NOTE | 2016-11-03 07:16 | DIAGNOSTIC IMAGING REPORT ---
SINGLE VIEW PELVIS CLINICAL HISTORY: Fall. FINDINGS: An AP portable pelvic radiograph is correlated with pelvic CT dated 11/01/2016. The skeletal structures are osteopenic. There is no radiographic evidence of fracture involving the hips or bony pelvis. Mild arthritic change is seen in the hips. The sacroiliac joints are normal as visualized. The overlying soft tissues are within normal limits. A calcified phlebolith is noted in the pelvis. Excreted contrast is present in the bladder. Lumbosacral spondylosis is partially imaged. IMPRESSION: There is no radiographic evidence of acute fracture in the hips or bony pelvis. Electronically signed by: Yeyo Madrigal M.D. 11/03/2016 7:14 AM Dictated Date/Time: 11/03/2016 7:13 AM
--- NOTE | 2016-11-03 08:19 | Clinical Documentation Query ---
ALLYSSA Chong : CLINICAL DOCUMENTATION QUERY Patient a 66 year old female admitted for failed outpatient treatment for pneumonia. Documentation includes "history of present illness is severely limited due to altered mental status" and she is noted to be "lethargic, only responds by grimacing". She is being treated with IV Rocephin and intravascular volume is being repleted with IVF. Please clarify as clinically appropriate. Thank you. In your clinical opinion is this patient being managed for: ( x ) Metabolic encephalopathy ( ) Other explanation of clinical findings (Please Explain) ( ) Unable to determine (Please Define) ( ) Need to Discuss ( ) Not Agree The medical record reflects the following clinical findings, treatment, and risk factors. Clinical Indicators: As above, altered mental status in the setting of infection. Treatment: IVF, IV Rocephin Risk Factors: Pneumonia/infection, dehydration, age Please clarify and document your clinical opinion in the progress notes and discharge summary. Terms such as "probable", "suspected", "likely", "questionable", "possible", or "still to be ruled out" are acceptable. IF IN AGREEMENT, YOU MUST DOCUMENT ABOVE DIAGNOSTIC STATEMENT IN DAILY PROGRESS NOTES AND DISCHARGE SUMMARY. This document is not part of the patient's record. Thank You, Douglas Agee, RN [phone]
[2016-11-03] MEDS: PHENYTOIN SODIUM ER 100 MG CAP PO SCH ×2 (08:38→21:29)
[2016-11-03] MEDS ORDERED: LEVOFLOXACIN 750 MG TAB PO SCH (13:30)
[2016-11-03] MEDS: ONDANSETRON INJ 2 MG/ML 2 ML VIAL IV PRN ×2 (13:39→19:26)
--- NOTE | 2016-11-03 14:07 | Hospitalist Progress Note ---
Hospitalist Progress Note Date of Service Nov 03, 2016. Subjective Pt evaluation today including: conversation w/ patient, physical exam, chart review, lab review, review of studies, review of inpatient medication list Patient states she is feeling well. Patient's main complaint was falling. According to patient she has been falling more frequently. Falls seem mechanical in nature- one fall she reports she tripped over the table leg, another fall she feel getting into a van, one fall her leg gave out (does periodically). Denies any recent seizure activity, states it have been over 1 month since last seizure. +chronic left lower extremity edema. Patient denies any fever, chills, sweats, lightheadedness, dizziness, vision changes, CP, palpitations, SOB, wheezing, cough, abdominal pain, nausea, vomiting, diarrhea, urinary symptoms, melena, numbness/tingling, weakness, muscle/joint pain, anxiety/depression, active bleeding, or new skin discoloration/changes. Medications Current Inpatient Medications Medications (Trade) Dose Ordered Sig/Rupert Route Start Time Stop Time Status Last Admin Dose Admin Potassium Chloride/Sodium Chloride (Nss + 20meq KCl 1000ml) 1,000 ml @ 100 mls/hr Q10H IV 11/03/16 03:45 12/03/16 03:44 11/03/16 13:39 100 MLS/HR Lamotrigine (Lamictal Tab) 200 mg BID PO 11/03/16 09:00 12/03/16 08:59 11/03/16 08:38 200 MG Phenytoin Sodium (Dilantin Er Cap) 100 mg BID PO 11/03/16 09:00 12/03/16 08:59 11/03/16 08:38 100 MG Ondansetron HCl 4 mg 4 mg Q6H PRN IV 11/03/16 13:15 12/03/16 13:14 11/03/16 13:39 4 MG Levofloxacin/Prmx (Levaquin / D5W/ Premixed D5W) 150 ml @ 100 mls/hr Q24H IV 11/03/16 13:45 11/10/16 13:44 UNV Objective Vital Signs Date Time Temp Pulse Resp B/P Pulse Ox O2 Delivery O2 Flow Rate FiO2 11/03/16 08:00 99 Room Air 11/03/16 07:25 36.6 69 18 136/79 99 Room Air 11/03/16 04:48 36.5 69 20 136/91 98 Room Air 11/03/16 03:10 72 20 161/62 94 Room Air 11/03/16 00:31 36.4 70 18 161/73 94 Room Air Physical Exam General Appearance: no apparent distress Eyes: normal inspection, PERRL ENT: hearing grossly normal Neck: supple Respiratory/Chest: lungs clear, no respiratory distress, no accessory muscle use, + decreased breath sounds Cardiovascular: regular rate, rhythm Abdomen: normal bowel sounds, non tender, soft Extremities: no calf tenderness, + swelling (mild non-pitting edema of left lower extremity- baseline according to patient ) Neurologic/Psychiatric: alert, normal mood/affect, oriented x 3 Skin: normal color, warm/dry, no rash Laboratory Results Last 24 Hours Test 11/03/16 01:09 11/03/16 01:10 Bedside Lactic Acid Venous 0.96 mmol/L White Blood Count 6.30 K/uL Red Blood Count 4.15 M/uL Hemoglobin 13.5 g/dL Hematocrit 40.2 % Mean Corpuscular Volume 96.9 fL Mean Corpuscular Hemoglobin 32.5 pg Mean Corpuscular Hemoglobin Concent 33.6 g/dl Platelet Count 231 K/uL Mean Platelet Volume 9.1 fL Neutrophils (%) (Auto) 78.5 % Lymphocytes (%) (Auto) 11.0 % Monocytes (%) (Auto) 9.4 % Eosinophils (%) (Auto) 0.0 % Basophils (%) (Auto) 0.5 % Neutrophils # (Auto) 4.95 K/uL Lymphocytes # (Auto) 0.69 K/uL Monocytes # (Auto) 0.59 K/uL Eosinophils # (Auto) 0.00 K/uL Basophils # (Auto) 0.03 K/uL RDW Standard Deviation 44.9 fL RDW Coefficient of Variation 12.8 % Immature Granulocyte % (Auto) 0.6 % Immature Granulocyte # (Auto) 0.04 K/uL Sodium Level 138 mmol/L Potassium Level 3.6 mmol/L Chloride Level 98 mmol/L Carbon Dioxide Level 29 mmol/L Anion Gap 11.0 mmol/L Blood Urea Nitrogen 27 mg/dl Creatinine 1.30 mg/dl Est Creatinine Clear Calc Drug Dose 44.7 ml/min Estimated GFR () 48.8 Estimated GFR (Non- 42.1 BUN/Creatinine Ratio 21.1 Random Glucose 119 mg/dl Calcium Level 9.0 mg/dl Assessment and Plan The patient is a 66-year-old female with history of cerebral palsy, who is brought to the emergency department via EMS with complaint of right-sided rib pain. She fell early in the day and reports hitting her head. She denies headache, shoulder pain, back pain or any other areas of pain. She is reportedly started on doxycycline for a respiratory infection a few days ago, and since that time has had multiple falls. She had been seen in the emergency department 2 days previously for a fall, at that time had a CT of the chest, abdomen and pelvis and was diagnosed with a pneumonia and started on doxycycline at that time. Her history of present illness is severely limited due to altered mental status. Pneumonia/URI -Admit med/surg -Placed on ceftriaxone 1 g IV x1 dose. -- After reviewing patient's chart, she was seen on 11/01 in ED- diagnosed with pneumonia and placed on Levaquin 750 mg PO daily. Patient took first dose of medication on 11/02. Will resume Levaquin IV 750 mg q48 hrs (renal dosing), until nausea/vomiting resolves. -IV Zofran PRN for nausea -Follow PRP and CBC -Lumbar spine x-ray -Blood cultures pending -Check rapid flu Cerebral palsy, with increasing frequency of falls: -Consult PT/OT -Consult geriatric social worker Seizure disorder: -Continue Phenytoin sodium 100 mg by mouth twice a day and Lamotrigine 200 mg by mouth twice a day. -EEG Hypertension: -Hold HCTZ 25 mg every morning, and potassium extended release 20 mEq by mouth every morning and 10 mEq by mouth every afternoon. -Monitor BPs Dehydration: -Cr. of 1.3 at admission -Treat with IV normal saline with 20 mg once potassium at 100 mils per hour -Follow PRP Lung nodule identified on CT on 11/01: -Will need f/u with PCP and recommended [address] DVT prophylaxis: -Early ambulation -CESAR and SCDs Dispo: -Lives at [facility] -PT/OT evaluations
[2016-11-03] MEDS ORDERED: LEVOFLOXACIN CONSULT ACTIVE PRN (14:15)
[2016-11-03] MEDS ORDERED: LEVOFLOXACIN / D5W 750 MG in PREMIXED IN D5W 150 ML IV SCH (14:30)
[2016-11-03 16:20] LABS: INFLUENZA A PCR Neg for Influ A (NEG); INFLUENZA B PCR Neg for Influ B (NEG)
--- NOTE | 2016-11-03 16:21 | DIAGNOSTIC IMAGING REPORT ---
FLUOROSCOPIC IMAGES OF THE LUMBAR SPINE CLINICAL HISTORY: Fall. COMPARISON: CT of the chest, abdomen and pelvis November 01, 2016. FLUOROSCOPY TIME: FINDINGS: There is 9 mm of anterolisthesis of L5 on S1 due to bilateral L5 pars defects. Mild loss of height of T12 and L1 is likely chronic. No acute fracture is identified. Sacroiliac joints are intact. Moderate multilevel degenerative changes are present. IMPRESSION: 1. No acute lumbar spine fracture or subluxation. 2. Mild compression deformities of T12 and L1 which are likely old. 3. Grade I anterolisthesis of L5 on S1 due to bilateral L5 pars defects. Electronically signed by: Jayson Waters M.D. 11/03/2016 4:19 PM Dictated Date/Time: 11/03/2016 4:16 PM
--- NOTE | 2016-11-03 17:05 | EEG Procedure Note ---
EEG Procedure Note Date of Service Nov 03, 2016. Start / End Times Start Time: 12:45 PM End Time: 1:05 PM Referring Physician Mimi Aleamn PA-C History This is a 66-year-old female who was found on the floor at her intermediate. EEG for further evaluation of unresponsiveness event for possible seizure etiology. Home Medication List Scheduled Alendronate/Cholecalciferol (Fosamax+D 70MG/2800 Iu), 1 TABLET PO WK Calcium Carbonate-Vitamin D (Calcium + D), 2 TABS PO DAILY Cholecalciferol (Vitamin D3), 5,000 UNITS PO DAILY Doxycycline Hyclate (Doxycycline Hyclate), 100 MG PO BID Hydrochlorothiazide (Hctz *), 25 MG PO QAM Lamotrigine (Lamictal), 200 MG PO BID Phenytoin Sodium (Dilantin *), 100 MG PO BID Potassium Ext Rel (Klor-Con), 20 MEQ PO QAM Potassium Ext Rel (Klor-Con), 10 MEQ PO QPM Scheduled PRN Acetaminophen (Tylenol), 1,000 MG PO q4-6 hours PRN for Pain or Fever Ondansetron Hcl (Zofran), 4 MG PO DIRECTED PRN for Nausea Phenylephrine W/ Dm-Gg (Tussin Cf), 10 ML PO Q4 PRN for Cough Inpatient Medication List Current Inpatient Medications Medications (Trade) Dose Ordered Sig/Rupert Route Start Time Stop Time Status Last Admin Dose Admin Potassium Chloride/Sodium Chloride (Nss + 20meq KCl 1000ml) 1,000 ml @ 100 mls/hr Q10H IV 11/03/16 03:45 12/03/16 03:44 11/03/16 13:39 100 MLS/HR Lamotrigine (Lamictal Tab) 200 mg BID PO 11/03/16 09:00 12/03/16 08:59 11/03/16 08:38 200 MG Phenytoin Sodium (Dilantin Er Cap) 100 mg BID PO 11/03/16 09:00 12/03/16 08:59 11/03/16 08:38 100 MG Ondansetron HCl 4 mg 4 mg Q6H PRN IV 11/03/16 13:15 12/03/16 13:14 11/03/16 13:39 4 MG Levofloxacin/Prmx (Levaquin / D5W/ Premixed D5W) 150 ml @ 100 mls/hr Q2D@1200 IV 11/05/16 12:00 11/10/16 11:59 Levofloxacin (Consult) 1 ea UD PRN N/A 11/03/16 14:15 12/03/16 14:14 Description This is a 21 electrode EEG with a single channel dedicated to limited EKG. The electrodes were placed in accordance with the International 10-20 system. Through most of the awake recording the patient did have mild diffuse muscle artifact secondary to shaking/shivering At the start of the recording the patient was in an awake state. Background was well organized and composed of symmetric mixed alpha and beta frequencies. There was a symmetric well-formed moderate amplitude 8-9 Hz posterior dominant rhythm that was reactive to eye opening and closure. Hyperventilation and intermittent photic stimulation were not done. Drowsiness was indicated by loss of muscle artifact, slowing of the background rhythm, and vertex waves. Interpretation This is a normal awake and drowsy routine EEG. There was no electrographic seizures or epileptiform discharges. Clinical Correlation A normal EEG does not rule out epilepsy if there is a strong clinical suspicion.
[2016-11-04] MEDS: NSS + 20MEQ KCL 1000ML 1,000 ML IV SCH ×3 (00:01→21:40)
[2016-11-04 05:28] VITALS: BP 120/68; PULSE 74; TEMP 36.9; O2SAT 95
[2016-11-04 05:57] LABS: HEMATOCRIT 36.1 % (37-47); MEAN CELL VOLUME 98.4 fL (80-100); MEAN CORPUSCULAR HEMOGLOBIN 33.2 pg (25-34); MEAN CORPUSCULAR HGB CONC 33.8 g/dl (32-36); MEAN PLATELET VOLUME 9.3 fL (7.4-10.4); PLATELET COUNT 194 K/uL (130-400); RED BLOOD COUNT 3.67 M/uL (4.2-5.4); WHITE BLOOD COUNT 5.35 K/uL (4.8-10.8)
[2016-11-04 06:28] LABS: BUN/CREATININE RATIO 22.1 (10-20); CALCIUM 7.9 mg/dl (8.5-10.1); CREATININE 1.1 mg/dl (0.60-1.20); POTASSIUM 3.9 mmol/L (3.5-5.1)
[2016-11-04 07:45] VITALS: BP 110/68; PULSE 75; TEMP 36.7; O2SAT 96
[2016-11-04] MEDS: PHENYTOIN SODIUM ER 100 MG CAP PO SCH ×2 (07:55→21:40)
[2016-11-04] MEDS: ONDANSETRON INJ 2 MG/ML 2 ML VIAL IV PRN (10:19)
[2016-11-04] MEDS ORDERED: LEVOFLOXACIN 750 MG TAB PO SCH (11:00)
[2016-11-04 11:19] VITALS: BP 122/69; PULSE 68; TEMP 36.4; O2SAT 92
--- NOTE | 2016-11-04 13:22 | DIAGNOSTIC IMAGING REPORT ---
LEFT KNEE 1 OR 2 VIEWS ROUTINE CLINICAL HISTORY: Instability. Multiple falls. COMPARISON: None FINDINGS: Alignment of the left knee is anatomic. There is no acute fracture or joint effusion. There is mild narrowing of the lateral compartment with osteophytosis. IMPRESSION: 1. No acute fracture or joint effusion of the left knee. 2. Mild left arthritis. Electronically signed by: Jayson Waters M.D. 11/04/2016 1:20 PM Dictated Date/Time: 11/04/2016 1:19 PM
--- NOTE | 2016-11-04 13:30 | DIAGNOSTIC IMAGING REPORT ---
RIGHT-SIDED RIB SERIES CLINICAL HISTORY: Fall. Right-sided chest wall pain. FINDINGS: 4 views may right-sided rib series are correlated with chest x-ray and chest CT dated 11/01/2016. The heart is enlarged. The right lung parenchyma is clear as visualized. There is no evidence of right-sided pneumothorax. The skeletal structures are osteopenic. There is no definite radiographic evidence of right-sided acute/distracted right-sided rib fracture as clinically queried. There is questionable cortical irregularity of the anterior right 9th rib near the costochondral junction. IMPRESSION: 1. There is no definite radiographic evidence of acute/distracted right-sided rib fracture as clinically queried. 2. Question mild cortical irregularity at the ninth costochondral junction. Cortical clinically for point tenderness at this site. Electronically signed by: Yeyo Madrigal M.D. 11/04/2016 1:29 PM Dictated Date/Time: 11/04/2016 1:24 PM
--- NOTE | 2016-11-04 14:53 | Progress Note ---
Subjective Date of Service: Nov 04, 2016. Problem List Medical Problems: (1) Failure of outpatient treatment Status: Acute (2) Multiple falls Status: Acute Objective Vital Signs Date Time Temp Pulse Resp B/P Pulse Ox O2 Delivery O2 Flow Rate FiO2 11/04/16 12:00 Room Air 11/04/16 11:19 36.4 68 16 122/69 92 2.0 11/04/16 07:45 36.7 75 18 110/68 96 Room Air 11/04/16 07:45 Room Air 11/04/16 05:28 36.9 74 20 120/68 95 Room Air 11/04/16 04:00 Room Air 11/04/16 00:00 Room Air 11/03/16 22:38 36.7 72 17 125/59 96 Room Air 11/03/16 20:00 Room Air 11/03/16 19:46 36.3 76 17 144/74 95 Room Air 11/03/16 16:00 Room Air 11/03/16 15:26 36.7 71 21 115/71 97 Room Air Laboratory Results Last 24 Hours Test 11/04/16 05:28 White Blood Count 5.35 K/uL Red Blood Count 3.67 M/uL Hemoglobin 12.2 g/dL Hematocrit 36.1 % Mean Corpuscular Volume 98.4 fL Mean Corpuscular Hemoglobin 33.2 pg Mean Corpuscular Hemoglobin Concent 33.8 g/dl RDW Standard Deviation 47.1 fL RDW Coefficient of Variation 13.1 % Platelet Count 194 K/uL Mean Platelet Volume 9.3 fL Sodium Level 142 mmol/L Potassium Level 3.9 mmol/L Chloride Level 105 mmol/L Carbon Dioxide Level 28 mmol/L Anion Gap 9.0 mmol/L Blood Urea Nitrogen 24 mg/dl Creatinine 1.10 mg/dl Est Creatinine Clear Calc Drug Dose 50.4 ml/min Estimated GFR () 59.7 Estimated GFR (Non- 51.5 BUN/Creatinine Ratio 22.1 Random Glucose 96 mg/dl Calcium Level 7.9 mg/dl Assessment and Plan The patient is a 66-year-old female with history of cerebral palsy, who is brought to the emergency department via EMS with complaint of right-sided rib pain. She fell early in the day and reports hitting her head. She denies headache, shoulder pain, back pain or any other areas of pain. She is reportedly started on doxycycline for a respiratory infection a few days ago, and since that time has had multiple falls. She had been seen in the emergency department 2 days previously for a fall, at that time had a CT of the chest, abdomen and pelvis and was diagnosed with a pneumonia and started on doxycycline at that time. Her history of present illness is severely limited due to altered mental status. - Cerebral palsy with more frequent falls: patient describes as left leg " giving out" no increased numbness in left leg, no pain in left leg, no back pain -- check lumbar x-ray: no fractures or severe DDD, old compression fracture from what she describes, there was no loss of consciousness, observing on tele for any arrhythmias: no pauses or AV block or tachyarrhythmias no reported seizures for one month, EEG: normal doubt that Pneumonia is cause of falls, she has been afebrile, normal WBC, no cough or dyspnea PT/OT consultations - recommending rehab today she c/o right rib pain - no fractures seen on rib x-ray left knee x-ray: no severe osteoarthritis - Pneumonia: continue Levaquin for 5 days total - N/V: continues with symptoms after eating, this is a new symptom for her, will check RUQ US to r/o cholecystitis check LFT and lipase, abdomen benign on exam Seizure disorder: -Continue Phenytoin sodium 100 mg by mouth twice a day and Lamotrigine 200 mg by mouth twice a day. -EEG Hypertension: -Hold HCTZ 25 mg every morning, and potassium extended release 20 mEq by mouth every morning and 10 mEq by mouth every afternoon. -Monitor BPs, stable Dehydration: -Cr. of 1.3 at admission, down to 1.1 with IV fluids, will decrease rate Lung nodule identified on CT on 11/01: -Will need f/u with PCP and recommended [address] DVT prophylaxis: -Early ambulation -CESAR and SCDs Dispo: -Lives at [facility] -PT/OT evaluations: recommend rehab when medically stable
[2016-11-04 15:25] VITALS: BP 163/78; PULSE 68; TEMP 36.9; O2SAT 100
--- NOTE | 2016-11-04 15:31 | DIAGNOSTIC IMAGING REPORT ---
ABDOMEN COMPLETE (US) CLINICAL HISTORY: Postprandial right upper quadrant pain and vomiting. COMPARISON STUDY: CTA of the chest abdomen pelvis November 01, 2016. FINDINGS: This exam is significantly compromised by suboptimal penetration. Hepatic echogenicity is increased. This suggests fatty infiltration. The sensitivity for detection of hepatic lesions is diminished but none are identified. There are gallstones within the gallbladder. No gallbladder wall thickening is present. The pancreas is largely obscured. Caliber of the common bile duct is at the upper limits of normal. The size of the spleen is normal. The right kidney measures 9 cm in maximal dimension and the left measures 10.1 cm. There is no hydronephrosis. Several renal cysts are noted. The largest cyst is a 3.5 cm right renal cyst. The caliber of the abdominal aorta is normal. No ascites is identified. IMPRESSION: 1. Cholelithiasis. No gallbladder wall thickening. 2. Study significantly compromised by suboptimal penetration. 3. Fatty liver. 4. No hydronephrosis. Electronically signed by: Jayson Waters M.D. 11/04/2016 3:29 PM Dictated Date/Time: 11/04/2016 3:27 PM
[2016-11-04 19:40] VITALS: BP 149/75; PULSE 75; TEMP 36.4; O2SAT 99
[2016-11-04 23:27] VITALS: BP 118/66; PULSE 78; TEMP 36.6; O2SAT 96
[2016-11-05 04:52] VITALS: BP 137/75; PULSE 76; TEMP 36.6; O2SAT 94
[2016-11-05 07:16] VITALS: BP 124/72; PULSE 72; TEMP 36.6; O2SAT 96
[2016-11-05 07:23] LABS: HEMATOCRIT 36.9 % (37-47); MEAN CELL VOLUME 98.7 fL (80-100); MEAN CORPUSCULAR HEMOGLOBIN 32.9 pg (25-34); MEAN CORPUSCULAR HGB CONC 33.3 g/dl (32-36); MEAN PLATELET VOLUME 9.3 fL (7.4-10.4); PLATELET COUNT 189 K/uL (130-400); RED BLOOD COUNT 3.74 M/uL (4.2-5.4); WHITE BLOOD COUNT 6.45 K/uL (4.8-10.8)
[2016-11-05 07:45] LABS: BUN/CREATININE RATIO 23.5 (10-20); CALCIUM 7.5 mg/dl (8.5-10.1); CREATININE 1.1 mg/dl (0.60-1.20)
[2016-11-05] MEDS ORDERED: NURSING VERBAL MED ORDER ONE (07:45)
[2016-11-05] MEDS ORDERED: ACETAMINOPHEN 325 MG TAB ONE (07:48)
[2016-11-05] MEDS: PHENYTOIN SODIUM ER 100 MG CAP PO SCH (07:53)
[2016-11-05] MEDS: NSS + 20MEQ KCL 1000ML 1,000 ML IV SCH (07:58)
[2016-11-05 08:00] VITALS: O2SAT 96
[2016-11-05] MEDS ORDERED: ACETAMINOPHEN 325 MG TAB PO PRN (08:00)
[2016-11-05] MEDS ORDERED: TRAMADOL HCL 50 MG TAB PO PRN (09:45)
[2016-11-05 11:35] VITALS: BP 136/79; PULSE 70; TEMP 36.4; O2SAT 99
--- NOTE | 2016-11-05 11:41 | Hospitalist Progress Note ---
Hospitalist Progress Note Date of Service Nov 05, 2016. Subjective Pt evaluation today including: conversation w/ patient, physical exam, chart review, lab review, review of studies, review of inpatient medication list Voiding: no voiding problems, no incontinence Patient states she is feeling well. RUQ pain is at a 0/10 currently. She tolerated breakfast well. She denies any recent nausea or vomiting. Patient denies any fever, chills, sweats, lightheadedness, dizziness, vision changes, CP , palpitations, edema, SOB, wheezing, cough, nausea, vomiting, diarrhea, urinary symptoms, melena, numbness/tingling, weakness, anxiety/depression, active bleeding, or new skin discoloration/changes. Medications Current Inpatient Medications Medications (Trade) Dose Ordered Sig/Rupert Route Start Time Stop Time Status Last Admin Dose Admin Potassium Chloride/Sodium Chloride (Nss + 20meq KCl 1000ml) 1,000 ml @ 75 mls/hr [id number] IV 11/03/16 03:45 11/05/16 07:58 75 MLS/HR Lamotrigine (Lamictal Tab) 200 mg BID PO 11/03/16 09:00 12/03/16 08:59 11/05/16 07:52 200 MG Phenytoin Sodium (Dilantin Er Cap) 100 mg BID PO 11/03/16 09:00 12/03/16 08:59 11/05/16 07:53 100 MG Ondansetron HCl 4 mg 4 mg Q6H PRN IV 11/03/16 13:15 12/03/16 13:14 11/04/16 10:19 4 MG Levofloxacin/Prmx (Levaquin / D5W/ Premixed D5W) 150 ml @ 100 mls/hr Q2D@1200 IV 11/05/16 12:00 11/10/16 11:59 Levofloxacin (Consult) 1 ea UD PRN N/A 11/03/16 14:15 12/03/16 14:14 Acetaminophen (Tylenol Tab) 650 mg Q6H PRN PO 11/05/16 08:00 12/05/16 07:59 Tramadol HCl (Ultram Tab) 50 mg Q4H PRN PO 11/05/16 09:45 12/05/16 09:44 11/05/16 11:14 50 MG Objective Vital Signs Date Time Temp Pulse Resp B/P Pulse Ox O2 Delivery O2 Flow Rate FiO2 11/05/16 08:00 96 Room Air 11/05/16 07:16 36.6 72 20 124/72 96 Room Air 11/05/16 04:52 36.6 76 18 137/75 94 Room Air 11/05/16 04:00 Room Air 11/05/16 00:00 Room Air 11/04/16 23:27 36.6 78 18 118/66 96 Room Air 11/04/16 20:00 Room Air 11/04/16 19:40 36.4 75 16 149/75 99 Room Air 11/04/16 16:00 Room Air 11/04/16 15:25 36.9 68 14 163/78 100 Room Air 11/04/16 12:00 Room Air Physical Exam General Appearance: no apparent distress Eyes: normal inspection, PERRL ENT: hearing grossly normal Neck: supple Respiratory/Chest: lungs clear, no respiratory distress, no accessory muscle use, + decreased breath sounds Cardiovascular: regular rate, rhythm Abdomen: normal bowel sounds, soft, + pertinent finding (RUQ/9-10 rib region extremely tender to light palpation ) Extremities: no calf tenderness, + pedal edema (bilateral, non-pitting ) Neurologic/Psychiatric: alert, normal mood/affect, oriented x 3 Skin: normal color, warm/dry, no rash Laboratory Results Last 24 Hours Test 11/04/16 15:40 11/05/16 06:35 Total Bilirubin 0.5 mg/dl Direct Bilirubin 0.2 mg/dl Aspartate Amino Transf (AST/SGOT) 24 U/L Alanine Aminotransferase (ALT/SGPT) 29 U/L Alkaline Phosphatase 145 U/L Total Protein 6.3 gm/dl Albumin 3.0 gm/dl Lipase 181 U/L White Blood Count 6.45 K/uL Red Blood Count 3.74 M/uL Hemoglobin 12.3 g/dL Hematocrit 36.9 % Mean Corpuscular Volume 98.7 fL Mean Corpuscular Hemoglobin 32.9 pg Mean Corpuscular Hemoglobin Concent 33.3 g/dl RDW Standard Deviation 47.7 fL RDW Coefficient of Variation 13.1 % Platelet Count 189 K/uL Mean Platelet Volume 9.3 fL Sodium Level 143 mmol/L Potassium Level 4.0 mmol/L Chloride Level 109 mmol/L Carbon Dioxide Level 25 mmol/L Anion Gap 9.0 mmol/L Blood Urea Nitrogen 26 mg/dl Creatinine 1.10 mg/dl Est Creatinine Clear Calc Drug Dose 51.3 ml/min Estimated GFR () 59.7 Estimated GFR (Non- 51.5 BUN/Creatinine Ratio 23.5 Random Glucose 91 mg/dl Calcium Level 7.5 mg/dl Assessment and Plan The patient is a 66-year-old female with history of cerebral palsy, who is brought to the emergency department via EMS with complaint of right-sided rib pain. She fell early in the day and reports hitting her head. She denies headache, shoulder pain, back pain or any other areas of pain. She is reportedly started on doxycycline for a respiratory infection a few days ago, and since that time has had multiple falls. She had been seen in the emergency department 2 days previously for a fall, at that time had a CT of the chest, abdomen and pelvis and was diagnosed with a pneumonia and started on doxycycline at that time. Her history of present illness is severely limited due to altered mental status. Pneumonia/URI -Admit med/surg -Placed on ceftriaxone 1 g IV x1 dose. -- After reviewing patient's chart, she was seen on 11/01 in ED- diagnosed with pneumonia and placed on Levaquin 750 mg PO daily. Patient took first dose of medication on 11/02. Will resume Levaquin IV 750 mg q48 hrs (renal dosing), until nausea/vomiting resolves. -CXR- Cardiomegaly with mild pulmonary vascular congestion. No focal airspace consolidation or large pleural effusion is identified. -Follow PRP and CBC -Blood cultures- negative -Rapid flu- negative Cerebral palsy, with increasing frequency of falls: -Consult PT/OT- recommending acute rehab -Consult social scientist -Lumbar spine x-ray- No acute lumbar spine fracture or subluxation. Mild compression deformities of T12 and L1 which are likely old. Grade I anterolisthesis of L5 on S1 due to bilateral L5 pars defects. -Left knee x-ray- No acute fracture or joint effusion of the left knee. Mild left arthritis. -Right-sided rib x-ray- No definite radiographic evidence of acute/distracted right-sided rib fracture as clinically queried. Question mild cortical irregularity at the ninth costochondral junction. -Pelvic x-ray- no acute findings Seizure disorder: -Continue Phenytoin sodium 100 mg by mouth twice a day and Lamotrigine 200 mg by mouth twice a day. -EEG unremarkable Nausea/vomiting, RUQ pain: -IV Zofran PRN for nausea -Tylenol 650 mg PO q6 hrs/Tramadol 50 mg q4 hrs PRN pain -Checked LFT and lipase -Abdominal u/s- Cholelithiasis. No gallbladder wall thickening. Fatty liver. No hydronephrosis. --Discussed need for outpatient f/u of cholelithiasis for possible Lap Cholecystectomy in future. Hypertension: -Hold HCTZ 25 mg every morning, and potassium extended release 20 mEq by mouth every morning and 10 mEq by mouth every afternoon. -Monitor BPs Dehydration: -Cr. of 1.3 at admission -Treat with IV normal saline with 20 mg once potassium at 100 mils per hour -Follow PRP Lung nodule identified on CT on 11/01: -Will need f/u with PCP and recommended [address] DVT prophylaxis: -Early ambulation -CESAR and SCDs Dispo: -Lives at [facility] -Pending referral to [facility] for acute rehab
[2016-11-05 12:00] VITALS: O2SAT 99
[2016-11-05] MEDS ORDERED: LEVOFLOXACIN / D5W 750 MG in PREMIXED IN D5W 150 ML IV SCH (12:00)
--- NOTE | 2016-11-05 12:05 | Clinical Documentation Query ---
[facility] : CLINICAL DOCUMENTATION QUERY Patient a 66 year old female admitted for failed outpatient treatment for pneumonia. Documentation includes "history of present illness is severely limited due to altered mental status" and she is noted to be "lethargic, only responds by grimacing". She is being treated with IV Rocephin and intravascular volume is being repleted with IVF. In your clinical opinion is this patient being managed for: ( ) Metabolic encephalopathy secondary to pneumonia, POA, resolved ( ) Other explanation of clinical findings (Please Explain) ( ) Unable to determine (Please Define) ( ) Need to Discuss ( ) Not Agree The medical record reflects the following clinical findings, treatment, and risk factors. Clinical Indicators: As above, altered mental status in the setting of infection. Treatment: IVF, IV Rocephin Risk Factors: Pneumonia/infection, dehydration, age Please clarify and document your clinical opinion in the progress notes and discharge summary. Terms such as "probable", "suspected", "likely", "questionable", "possible", or "still to be ruled out" are acceptable. IF IN AGREEMENT, YOU MUST DOCUMENT ABOVE DIAGNOSTIC STATEMENT IN DAILY PROGRESS NOTES AND DISCHARGE SUMMARY. This document is not part of the patient's record. Thank You, Douglas Agee, RN [phone]
[2016-11-05] MEDS ORDERED: LEVO750T23 PO (12:12)
[2016-11-05] MEDS ORDERED: ULT50X PO (12:12)
--- NOTE | 2016-11-05 12:42 | Discharge Instructions ---
Discharge Instructions Admission Reason for Admission: Failure Of Op Treatment, Muliple Falls Discharge Discharge Diagnosis / Problem: Pneumonia; Falls Discharge Goals Goal(s): Decrease discomfort, Improve function, Increase independence, Learn about illness, Diagnostic testing, Therapeutic intervention, Prevent Disease Progression Activity Recommendations Activity Limitations: resume your previous activity Instructions / Follow-Up Instructions / Follow-Up Pneumonia: -Take Levaquin 750 mg by mouth daily on 11/07, 11/09, and 11/11 Right-sided rib pain: -Managed with Tramadol 50 mg by mouth q4 hrs and Tylenol 650 mg PO q6 hrs Resume all other regular home medications Follow-up with [facility] Provider within 24-48 hrs Please follow-up/keep all of your subspecialty appointments. Current Hospital Diet Patient's current hospital diet: AHA Diet (Heart Healthy) Discharge Diet Recommended Diet: AHA Diet (Heart Healthy) Procedures Procedures Performed: 1. CXR 2. Pelvic x-ray 3. Lumbar x-ray 4. Right rib x-ray 5. Left knee x-ray 6. Abdomen u/s Pending Studies Studies pending at discharge: no Laboratory Results Last 24 Hours Test 11/04/16 15:40 11/05/16 06:35 Total Bilirubin 0.5 mg/dl Direct Bilirubin 0.2 mg/dl Aspartate Amino Transf (AST/SGOT) 24 U/L Alanine Aminotransferase (ALT/SGPT) 29 U/L Alkaline Phosphatase 145 U/L Total Protein 6.3 gm/dl Albumin 3.0 gm/dl Lipase 181 U/L White Blood Count 6.45 K/uL Red Blood Count 3.74 M/uL Hemoglobin 12.3 g/dL Hematocrit 36.9 % Mean Corpuscular Volume 98.7 fL Mean Corpuscular Hemoglobin 32.9 pg Mean Corpuscular Hemoglobin Concent 33.3 g/dl RDW Standard Deviation 47.7 fL RDW Coefficient of Variation 13.1 % Platelet Count 189 K/uL Mean Platelet Volume 9.3 fL Sodium Level 143 mmol/L Potassium Level 4.0 mmol/L Chloride Level 109 mmol/L Carbon Dioxide Level 25 mmol/L Anion Gap 9.0 mmol/L Blood Urea Nitrogen 26 mg/dl Creatinine 1.10 mg/dl Est Creatinine Clear Calc Drug Dose 51.3 ml/min Estimated GFR () 59.7 Estimated GFR (Non- 51.5 BUN/Creatinine Ratio 23.5 Random Glucose 91 mg/dl Calcium Level 7.5 mg/dl Medical Emergencies . Who to Call and When: Medical Emergencies: If at any time you feel your situation is an emergency, please call 911 immediately. . Non-Emergent Contact Non-Emergency issues call your: Primary Care Provider Call Non-Emergent contact if: you have a fever, your pain is not controlled, your pain is worsening, your pain is unusual for you, your pain is concerning you, you have any medication questions . . "Provider Documentation" section prepared by Mimi Aleman. VTE Core Measure Inpt VTE Proph given/why not?: SCD's
--- NOTE | 2016-11-05 12:57 | Discharge Summary ---
Discharge Summary Admission Date: Nov 03, 2016 at 03:28 Discharge Date: Nov 05, 2016 Discharge Disposition: Rehab Principal Diagnosis: Pneumonia Problems/Secondary Diagnoses: 1. Falls 2. Weakness Procedures: SINGLE VIEW PELVIS CLINICAL HISTORY: Fall. FINDINGS: An AP portable pelvic radiograph is correlated with pelvic CT dated 11/01/2016. The skeletal structures are osteopenic. There is no radiographic evidence of fracture involving the hips or bony pelvis. Mild arthritic change is seen in the hips. The sacroiliac joints are normal as visualized. The overlying soft tissues are within normal limits. A calcified phlebolith is noted in the pelvis. Excreted contrast is present in the bladder. Lumbosacral spondylosis is partially imaged. IMPRESSION: There is no radiographic evidence of acute fracture in the hips or bony pelvis. Electronically signed by: Yeyo Madrigal M.D. 11/03/2016 7:14 AM Dictated Date/Time: 11/03/2016 7:13 AM The status of this report is Signed. Draft = Not yet reviewed or approved by Radiologist. Signed = Reviewed and approved by Radiologist. SINGLE VIEW CHEST CLINICAL HISTORY: Fall. Right-sided chest wall pain. FINDINGS: An AP, portable, upright chest radiograph is compared to study dated 11/01/2016. Correlation is made with chest CT dated 11/01/2016. The heart is enlarged. There is mild pulmonary vascular congestion. Chronic interstitial thickening is unchanged. There are low lung volumes and bibasilar atelectasis. No airspace consolidation or large pleural effusion is identified. No pneumothorax is seen. The skeletal structures are osteopenic. There are healed left-sided rib fractures. IMPRESSION: 1. Cardiomegaly with mild pulmonary vascular congestion. 2. No focal airspace consolidation or large pleural effusion is identified. Electronically signed by: Yeyo Madrigal M.D. 11/03/2016 7:11 AM Dictated Date/Time: 11/03/2016 7:08 AM The status of this report is Signed. Draft = Not yet reviewed or approved by Radiologist. Signed = Reviewed and approved by Radiologist. FLUOROSCOPIC IMAGES OF THE LUMBAR SPINE CLINICAL HISTORY: Fall. COMPARISON: CT of the chest, abdomen and pelvis November 01, 2016. FLUOROSCOPY TIME: FINDINGS: There is 9 mm of anterolisthesis of L5 on S1 due to bilateral L5 pars defects. Mild loss of height of T12 and L1 is likely chronic. No acute fracture is identified. Sacroiliac joints are intact. Moderate multilevel degenerative changes are present. IMPRESSION: 1. No acute lumbar spine fracture or subluxation. 2. Mild compression deformities of T12 and L1 which are likely old. 3. Grade I anterolisthesis of L5 on S1 due to bilateral L5 pars defects. Electronically signed by: Jayson Waters M.D. 11/03/2016 4:19 PM Dictated Date/Time: 11/03/2016 4:16 PM The status of this report is Signed. Draft = Not yet reviewed or approved by Radiologist. Signed = Reviewed and approved by Radiologist. RIGHT-SIDED RIB SERIES CLINICAL HISTORY: Fall. Right-sided chest wall pain. FINDINGS: 4 views may right-sided rib series are correlated with chest x-ray and chest CT dated 11/01/2016. The heart is enlarged. The right lung parenchyma is clear as visualized. There is no evidence of right-sided pneumothorax. The skeletal structures are osteopenic. There is no definite radiographic evidence of right-sided acute/distracted right-sided rib fracture as clinically queried. There is questionable cortical irregularity of the anterior right 9th rib near the costochondral junction. IMPRESSION: 1. There is no definite radiographic evidence of acute/distracted right-sided rib fracture as clinically queried. 2. Question mild cortical irregularity at the ninth costochondral junction. Cortical clinically for point tenderness at this site. Electronically signed by: Yeyo Madrigal M.D. 11/04/2016 1:29 PM Dictated Date/Time: 11/04/2016 1:24 PM The status of this report is Signed. Draft = Not yet reviewed or approved by Radiologist. Signed = Reviewed and approved by Radiologist. LEFT KNEE 1 OR 2 VIEWS ROUTINE CLINICAL HISTORY: Instability. Multiple falls. COMPARISON: None FINDINGS: Alignment of the left knee is anatomic. There is no acute fracture or joint effusion. There is mild narrowing of the lateral compartment with osteophytosis. IMPRESSION: 1. No acute fracture or joint effusion of the left knee. 2. Mild left arthritis. Electronically signed by: Jayson Waters M.D. 11/04/2016 1:20 PM Dictated Date/Time: 11/04/2016 1:19 PM The status of this report is Signed. Draft = Not yet reviewed or approved by Radiologist. Signed = Reviewed and approved by Radiologist. ABDOMEN COMPLETE (US) CLINICAL HISTORY: Postprandial right upper quadrant pain and vomiting. COMPARISON STUDY: CTA of the chest abdomen pelvis November 01, 2016. FINDINGS: This exam is significantly compromised by suboptimal penetration. Hepatic echogenicity is increased. This suggests fatty infiltration. The sensitivity for detection of hepatic lesions is diminished but none are identified. There are gallstones within the gallbladder. No gallbladder wall thickening is present. The pancreas is largely obscured. Caliber of the common bile duct is at the upper limits of normal. The size of the spleen is normal. The right kidney measures 9 cm in maximal dimension and the left measures 10.1 cm. There is no hydronephrosis. Several renal cysts are noted. The largest cyst is a 3.5 cm right renal cyst. The caliber of the abdominal aorta is normal. No ascites is identified. IMPRESSION: 1. Cholelithiasis. No gallbladder wall thickening. 2. Study significantly compromised by suboptimal penetration. 3. Fatty liver. 4. No hydronephrosis. Electronically signed by: Jayson Waters M.D. 11/04/2016 3:29 PM Dictated Date/Time: 11/04/2016 3:27 PM The status of this report is Signed. Draft = Not yet reviewed or approved by Radiologist. Signed = Reviewed and approved by Radiologist. Medication Reconciliation New Medications: Levofloxacin (Levaquin) 750 Mg Tab 1 TAB PO Q2D for 3 Days, #3 TAB Tramadol HCl (Tramadol HCl) 50 Mg Tab 50 MG PO Q4H PRN for Pain for 15 Days, #60 TAB Continued Medications: Acetaminophen (Tylenol) 500 Mg Tab 1000 MG PO q4-6 hours PRN for Pain or Fever, TAB Alendronate/Cholecalciferol (Fosamax+D 70MG/2800 Iu) 70 Mg Tab 1 TABLET PO WK, TAB takes on sat Calcium Carbonate-Vitamin D (Calcium + D) 1 Tab Tab 2 TABS PO DAILY take with food Cholecalciferol (Vitamin D3) 1,000 Unit Tab 5000 UNITS PO DAILY, TAB 3 Refills Hydrochlorothiazide (Hctz *) 25 Mg Tab 25 MG PO QAM Lamotrigine (Lamictal) 200 Mg Tab 200 MG PO BID, 0 Refills Ondansetron Hcl (Zofran) 4 Mg Tab 4 MG PO DIRECTED PRN for Nausea, TAB Phenylephrine W/ Dm-Gg (Tussin Cf) 1 Liq Liq 10 ML PO Q4 PRN for Cough Phenytoin Sodium (Dilantin *) 100 Mg Ercap 100 MG PO BID Potassium Ext Rel (Klor-Con) 10 Meq Tabcr 20 MEQ PO QAM, 0 Refills Potassium Ext Rel (Klor-Con) 10 Meq Tabcr 10 MEQ PO QPM, 0 Refills Discontinued Medications: Doxycycline Hyclate (Doxycycline Hyclate) 100 Mg Tab 100 MG PO BID Discharge Exam Review of Systems: Constitutional: No chills, No fatigue, No fever, No sweats, No weakness Respiratory: No cough, No hemoptysis, No shortness of breath Cardiovascular: No chest pain, No edema, No palpitations Abdomen: + pain, No constipation, No diarrhea, No nausea, No vomiting Musculoskeletal: + joint pain, + muscle pain, No calf pain, No swelling Genitourinary - Female: No dysuria, No hematuria Neurologic: No numbness/tingling, No weakness Psychiatric: No anxiety, No depression symptoms Hematologic / Lymphatic: No abnormal bleeding/bruising Integumentary: No itch, No new/changing skin lesions, No rash Physical Exam: General Appearance: no apparent distress Eyes: normal inspection, PERRL ENT: hearing grossly normal Neck: supple Respiratory/Chest: lungs clear, no respiratory distress, no accessory muscle use, + decreased breath sounds Cardiovascular: regular rate, rhythm, normal peripheral pulses Abdomen / GI: normal bowel sounds, soft, + pertinent finding (RUQ/9-10 rib region extremely tender to light palpation) Extremities: no calf tenderness, + pedal edema (non, pitting, bilateral ) Neurologic/Psychiatric: alert, normal mood/affect, oriented x 3 Skin: normal color, warm/dry, no rash Hospital Course The patient is a 66-year-old female with history of cerebral palsy, who is brought to the emergency department via EMS with complaint of right-sided rib pain. She fell early in the day and reports hitting her head. She denies headache, shoulder pain, back pain or any other areas of pain. She is reportedly started on doxycycline for a respiratory infection a few days ago, and since that time has had multiple falls. She had been seen in the emergency department 2 days previously for a fall, at that time had a CT of the chest, abdomen and pelvis and was diagnosed with a pneumonia and started on doxycycline at that time. Her history of present illness is severely limited due to altered mental status. Pneumonia/URI -Admit med/surg -Placed on ceftriaxone 1 g IV x1 dose. -- After reviewing patient's chart, she was seen on 11/01 in ED- diagnosed with pneumonia and placed on Levaquin 750 mg PO daily. Patient took first dose of medication on 11/02. Will resume Levaquin IV 750 mg q48 hrs (renal dosing), until nausea/vomiting resolves. --Dose given on 11/05. At discharge continue x3 days on 11/07, 11/09, 11/11 -CXR- Cardiomegaly with mild pulmonary vascular congestion. No focal airspace consolidation or large pleural effusion is identified. -Follow PRP and CBC -Blood cultures- negative -Rapid flu- negative Cerebral palsy, with increasing frequency of falls: -Consult PT/OT- recommending acute rehab -Consult manager social -Lumbar spine x-ray- No acute lumbar spine fracture or subluxation. Mild compression deformities of T12 and L1 which are likely old. Grade I anterolisthesis of L5 on S1 due to bilateral L5 pars defects. -Left knee x-ray- No acute fracture or joint effusion of the left knee. Mild left arthritis. -Right-sided rib x-ray- No definite radiographic evidence of acute/distracted right-sided rib fracture as clinically queried. Question mild cortical irregularity at the ninth costochondral junction. -Pelvic x-ray- no acute findings Seizure disorder: -Continue Phenytoin sodium 100 mg by mouth twice a day and Lamotrigine 200 mg by mouth twice a day. -EEG unremarkable Nausea/vomiting, RUQ pain: -IV Zofran PRN for nausea -Tylenol 650 mg PO q6 hrs/Tramadol 50 mg q4 hrs PRN pain -Checked LFT and lipase -Abdominal u/s- Cholelithiasis. No gallbladder wall thickening. Fatty liver. No hydronephrosis. --Discussed need for outpatient f/u of cholelithiasis for possible Lap Cholecystectomy in future. Hypertension: -Hold HCTZ 25 mg every morning, and potassium extended release 20 mEq by mouth every morning and 10 mEq by mouth every afternoon. -Monitor BPs Resume home medications at discharge Dehydration: -Cr. of 1.3 at admission -Treat with IV normal saline with 20 mg once potassium at 100 mils per hour -Follow PRP Lung nodule identified on CT on 11/01: -Will need f/u with PCP and recommended [address] DVT prophylaxis: -Early ambulation -CESAR and SCDs Dispo: -Discharge to [facility] Total Time Spent: Greater than 30 minutes This includes examination of the patient, discharge planning, medication reconciliation, and communication with other providers. Discharge Instructions Please refer to the electronic Patient Visit Report (Discharge Instructions) for additional information. Follow-Up Follow-up from [facility] provider in 24-48 hrs Please follow-up with General Surgery in 2-3 weeks for gallstones. Office # [phone] Please follow-up/keep all of your subspecialty appointments. Additional Copies To [facility] HospitalM[facility] kincaid; Ny Holliday,C.R.N.P.
[2016-11-05 15:05] VITALS: BP 136/79; PULSE 70; TEMP 36.4; O2SAT 99
[2016-11-06] MEDS ORDERED: LEVOFLOXACIN / D5W 750 MG in PREMIXED IN D5W 150 ML IV SCH (11:00)
== END 2016-11-05 16:40 | DRG 193 ==
LOC: ENRESERVTM → CANRESERV → ENRESERVDT → EDBD 00:25 → C.EDA 00:27 → C.MED 03:28
PROVIDERS: ADMIT Hospitalist; ATTEND Internal Medicine
DX: J18.9 Pneumonia, unspecified organism (principal); G93.41 Metabolic encephalopathy; G80.9 Cerebral palsy, unspecified; E86.0 Dehydration; G40.909 Epilepsy, unspecified, not intractable, without status epilepticus; R91.1 Solitary pulmonary nodule; K76.0 Fatty (change of) liver, not elsewhere classified; K80.20 Calculus of gallbladder without cholecystitis without obstruction; I10 Essential (primary) hypertension; R29.6 Repeated falls; R53.1 Weakness; R11.2 Nausea with vomiting, unspecified; R10.11 Right upper quadrant pain; R20.2 Paresthesia of skin; R26.9 Unspecified abnormalities of gait and mobility; Z79.83 Long term (current) use of bisphosphonates; Z79.899 Other long term (current) drug therapy; T14.8 Other injury of unspecified body region; W01.0XXA Fall on same level from slipping, tripping and stumbling without subsequent striking against object, initial encounter; Z88.8 Allergy status to other drugs, medicaments and biological substances

== ENCOUNTER → 2017-05-05 | Outpatient (CLI) | payer OTHER ==
[~2017-05-05] MED LIST changes: +ACET-1256 PO; +CALC600T9 PO; -LEVO750T23 PO; +ONDA4TAB46 PO; +PHEN-488 PO; +ULT50X PO; -VBRT100 PO
--- NOTE | 2017-05-05 11:15 | DIAGNOSTIC IMAGING REPORT ---
LEFT ANKLE MIN 3 VIEWS ROUTINE, LEFT FOOT MIN 3 VIEWS ROUTINE CLINICAL HISTORY: 67 years-old Female presenting with FALL/ PAIN/ SWELLING. TECHNIQUE: Frontal, oblique, and lateral views of the left ankle and frontal, oblique, and lateral views of the left foot were obtained. COMPARISON: Left foot radiographs from 05/14/2016. FINDINGS: Left ankle: Significant interval increase in diffuse soft tissue swelling of the left lower leg and left ankle. Ankle mortise intact. No acute fracture, malalignment, or radiopaque foreign body. No osteolysis or periosteal reaction to suggest osteomyelitis. Left foot: Diffuse soft tissue swelling of the foot has increased from prior. No acute fracture, malalignment, or radiopaque foreign body. No osteolysis or periosteal reaction to suggest osteomyelitis. Degenerative changes in the midfoot. IMPRESSION: 1. No acute osseous injury or radiographic evidence of osteomyelitis. 2. Interval increase in diffuse soft tissue swelling of the left lower leg, ankle, and foot. Electronically signed by: Joseph Stokes M.D. 05/05/2017 11:14 AM Dictated Date/Time: 05/05/2017 11:10 AM
== END | disposition home or self-care (01) ==
LOC: C.RADPV 10:41
PROVIDERS: ATTEND Nurse Practitioner Family
DX: M79.672 Pain in left foot (principal); M25.472 Effusion, left ankle; M25.475 Effusion, left foot; Z91.81 History of falling

== ENCOUNTER → 2017-05-30 | Outpatient (CLI) | payer OTHER ==
[2017-05-30 13:10] LABS: ALT/SGPT 17 U/L (12-78); BLOOD UREA NITROGEN 17 mg/dl (7-18); BUN/CREATININE RATIO 15.3 (10-20); CALCIUM 8.9 mg/dl (8.5-10.1); CARBON DIOXIDE 30 mmol/L (21-32); CHLORIDE 97 mmol/L (98-107); GLUCOSE 89 mg/dl (70-99); SODIUM 134 mmol/L (136-145)
[2017-05-30 13:13] LABS: ALB/GLOB RATIO 0.9 (0.9-2); ALKALINE PHOSPHATASE 138 U/L (45-117); AST/SGOT 11 U/L (15-37)
== END | disposition home or self-care (01) ==
LOC: C.LABSALHI 12:39
PROVIDERS: ATTEND Nurse Practitioner Family
DX: I10 Essential (primary) hypertension (principal)

== ENCOUNTER → 2017-05-30 | Outpatient (CLI) | payer OTHER ==
--- NOTE | 2017-05-30 16:07 | MAMMOGRAPHY REPORT ---
BILATERAL DIGITAL SCREENING MAMMOGRAM WITH CAD: 05/30/2017 CLINICAL HISTORY: Routine screening. Patient has no complaints. TECHNIQUE: Bilateral CC and MLO views were obtained. Current study was also evaluated with a Compute r Aided Detection (CAD) system. COMPARISON: Comparison is made to exams dated: 05/27/2016 mammogram, 04/29/2015 mammogram, 04/29/2015 aspi ration, 04/22/2015 ultrasound, 04/22/2015 mammogram, and 04/15/2015 mammogram - [facility] nter. BREAST COMPOSITION: The tissue of both breasts is heterogeneously dense, which may obscure small mas ses. FINDINGS: There is fluctuating nodularity in the left breast, most likely represent fluctuating cysts . There are stable groupings of benign-appearing microcalcifications bilaterally, and a few scattere d benign rim calcifications in the breasts. Mild vascular calcification as well. No suspicious spic ulated or irregular mass, architectural distortion or cluster of new, suspicious microcalcifications is seen. IMPRESSION: ACR BI-RADS CATEGORY 1: NEGATIVE There is no mammographic evidence of malignancy. A 1 year screening mammogram is recommended. The pa tient will receive written notification of the results. Approximately 10% of breast cancers are not detected with mammography. A negative mammographic report should not delay biopsy if a clinically suggestive mass is present. Arcelia Torres M.D. ay/:05/30/2017 14:56:14 Grease Man: Esthela Demarco, [facility] letter sent: Normal 1/2 BI-RADS Code: ACR BI-RADS Category 1: Negative
== END | disposition home or self-care (01) ==
LOC: C.MAMM 13:59
PROVIDERS: ATTEND Nurse Practitioner
DX: Z12.31 Encounter for screening mammogram for malignant neoplasm of breast (principal); I10 Essential (primary) hypertension

== ENCOUNTER → 2017-08-08 | Outpatient (CLI) | payer OTHER | END | disposition home or self-care (01) | LOC: C.LABSALHI 14:12 | PROVIDERS: ATTEND Psychiatry & Neurology Neurology | DX: G40.319 Generalized idiopathic epilepsy and epileptic syndromes, intractable, without status epilepticus (principal) ==

== ENCOUNTER → 2017-09-08 | Outpatient (CLI) | payer OTHER ==
[2017-09-08 17:38] LABS: URINE APPEARANCE CLEAR (CLEAR); URINE BILIRUBIN NEG (NEG); URINE COLOR YELLOW; URINE EPITHELIAL CELL AUTO 0-5 /lpf (0-5); URINE NITRITE POS (NEG); URINE PH 8.5 (4.5-7.5); URINE SPECIFIC GRAVITY 1.011 (1.000-1.030); UROBILINOGEN NEG (NEG)
[2017-09-08 17:47] LABS: MANUAL MICROSCOPIC REQUIRED? NO; REVIEW REQ? NO
== END | disposition home or self-care (01) ==
LOC: C.LABSALHI 11:35
PROVIDERS: ATTEND Nurse Practitioner Family
DX: R10.9 Unspecified abdominal pain (principal); R30.0 Dysuria

== ENCOUNTER → 2017-11-04 | Outpatient (CLI) | payer OTHER ==
[~2017-11-04] MED LIST changes: +LAMO200T35 PO; -LAMO200T38 PO
--- NOTE | 2017-11-04 11:32 | DIAGNOSTIC IMAGING REPORT ---
CT SCAN OF THE CHEST WITHOUT IV CONTRAST CLINICAL HISTORY: Pulmonary nodule. COMPARISON STUDY: Chest CT dated 11/01/2016. Chest x-ray dated 11/03/2016. TECHNIQUE: CT scan of the thorax was performed from the thoracic inlet to the upper abdomen. Images are reviewed in the axial, sagittal, and coronal planes. IV contrast was not administered for this examination as per the referring clinician. A dose lowering technique was utilized adhering to the principles of ALARA. The examination is degraded by motion artifact. CT DOSE: 749.24 mGy.cm FINDINGS: Thyroid: Imaged portions of the thyroid gland are normal in size and attenuation. Thoracic aorta: The thoracic aorta is normal in caliber and demonstrates not well assessed without IV contrast bovine variant arch anatomy. Heart: The heart is enlarged and without pericardial effusion. The pulmonary trunk is markedly dilated, measuring 4 cm in transverse diameter. This suggests pulmonary artery hypertension. Lungs and pleural spaces: Evaluation of the lung parenchyma is compromised by motion artifact. No airspace consolidation is seen typical for pneumonia and there is no pleural effusion. The trachea and central airways are clear. A 6 cm right lower lobe pulmonary nodule image 157 is unchanged. The left lower lobe nodule seen on 11/01/2016 is no longer apparent. Mediastinum: There is no mediastinal lymphadenopathy. Argelia: Clear. Axillae: There is no axillary lymphadenopathy. Upper abdomen: A small hiatal hernia is observed. A large calcified gallstone is partially imaged. A 2.7 cm left adrenal adenoma is unchanged. A 1.9 cm cyst arises from the upper pole of the right kidney. Skeletal structures: The skeletal structures are osteopenic. No lytic or blastic bony lesions are seen. Degenerative change is present in the right shoulder and thoracic spine. Thoracic scoliosis is observed. IMPRESSION: 1. Motion compromised examination. 2. Cardiomegaly with evidence of pulmonary artery hypertension. 3. There is no airspace consolidation or pleural effusion. 4. An indeterminant 6 mm right lower lobe pulmonary nodule is unchanged from 11/01/2016. Continued follow-up is recommended as per the Fleischner criteria. 5. The left lower lobe nodule seen on 11/01/2016 is no longer apparent. 6. Cholelithiasis. 7. Additional findings as above. Please refer to below summary of Fleischner criteria recommendations for follow-up of incidental CT nodules (Marylou Meyers, Guidelines for management of small pulmonary nodules detected on CT scans: A statement from the Fleischner Society, Radiology 237: [phone].) SOLID NODULES Solitary nodule size: <6 mm * low risk patients: no follow-up needed * high risk patients: optional CT at 12 months Solitary nodule size: 6-8 mm * low risk patients: follow-up at 6-12 months, then consider further follow-up at 18-24 months * high risk patients: initial follow-up CT at 6-12 months and then at 18-24 months if no change Solitary nodule size: >8 mm * either low or high risk patients - consider follow-up CT at 3 months, and/or CT-PET, and/or biopsy Multiple nodules size: <6 mm * low risk patients: no routine follow-up * high risk patients: optional CT at 12 months Multiple nodules size: 6-8 mm * low risk patients: follow-up at 3-6 months, then consider further follow-up at 18-24 months * high risk patients: follow-up at 3-6 months, then at 18-24 months if no change Multiple nodules size: >8 mm * low risk patients: follow-up at 3-6 months, then consider further follow-up at 18-24 months * high risk patients: follow-up at 3-6 months, then at 18-24 months if no change Note: newly detected indeterminate nodule in persons 35 years of age or older. * low risk patients: minimal or absent history of smoking and/or other known risk factors * high risk patients: history of smoking or of other known risk factors (e.g. first degree relative with lung cancer, or exposure to asbestos, radon, uranium) * if a nodule up to 8 mm is partly solid or is ground glass further follow-up is required after 24 months to exclude possible slow growing adenocarcinoma (TRINITY) SUBSOLID NODULES Solitary pure ground-glass nodule * nodule size <6 mm - no CT follow-up required * nodule size >=6 mm - follow-up CT at 6-12 months, then every 2 years until 5 years Solitary part-solid nodule * nodule size <6 mm - no CT follow-up required * nodule size >=6 mm - follow-up CT at 3-6 months. If unchanged, and solid component remains <6 mm, then annual follow-up for 5 years Multiple subsolid nodules * nodule size <6 mm - follow-up CT at 3-6 months, consider further follow-up at 2 and 4 years if stable * nodule size >=6 mm - follow-up CT at 3-6 months, subsequent management based on the most suspicious nodule(s) Electronically signed by: Yeyo Madrigal M.D. 11/04/2017 11:31 AM Dictated Date/Time: 11/04/2017 11:25 AM
== END | disposition home or self-care (01) ==
LOC: C.CTS 10:59
PROVIDERS: ATTEND Nurse Practitioner Family
DX: R91.8 Other nonspecific abnormal finding of lung field (principal); I51.7 Cardiomegaly; I27.20 Pulmonary hypertension, unspecified; K80.20 Calculus of gallbladder without cholecystitis without obstruction

== ENCOUNTER → 2017-11-14 | Outpatient (CLI) | payer OTHER ==
--- NOTE | 2017-11-15 17:46 | ECHOCARDIOGRAM REPORT ---
*NOTICE TO RECEIVING CONSTITUTION PARTY AGENCY This information is strictly Confidential and protected under [place] law. [place] law prohibits you from making any further disclosure of this information unless further disclosure is expressly permitted by the written consent of the person to whom it pertains or is authorized by law. A general authorization for the release of medical or other information is not sufficient for this purpose. Hospital accepts no responsibility if the information is made available to any other person, INCLUDING THE PATIENT. Interpretation Summary * Name: MANA NGUYEN Study Date: 11/14/2017 12:39 PM BP: 142/64 mmHg * Patient Location: [facility] HR: 72 * : 1950 (M/d/yyyy) Gender: Female Height: 59 in * Age: 67 yrs Ethnicity: CA Weight: 210 lb * Ordering Physician: Ny Holliday * Referring Physician: Ny Holliday * Performed By: Yesica Menendez RDCS * * Reason For Study: RECENT CT SHOWED CHANGES IN PULMONARY HTN * BSA: 1.9 m2 * -- Conclusions -- * 1. Normal left ventricular size and systolic function. EF 65-70%. No regional wall motion abnormalities. Moderate concentric left ventricular hypertrophy. * 2. The left atrium is moderately dilated. * 3. No significant valvular abnormalities visualized. * 4. Top-normal estimated right ventricular systolic pressure; 36mmHg. * 5. No prior study available for comparison. Procedure Details * A complete two-dimensional transthoracic echocardiogram was performed (2D, M-mode, Doppler and color flow Doppler). Left Ventricle * Normal left ventricular size and systolic function. EF 65-70%. No regional wall motion abnormalities. Moderate concentric left ventricular hypertrophy. No significant diastolic dysfunction. Right Ventricle * The right ventricle is normal in size and function. * The right ventricular systolic function is normal as assessed by tricuspid annular plane systolic excursion (TAPSE) (normal >1.5 cm). Atria * The left atrium is moderately dilated. * Right atrial size is normal. * Inter atrial septum not well visualized in its entirety. Mitral Valve * The mitral valve is grossly normal. * There is no mitral valve stenosis. * There is trace mitral regurgitation. Tricuspid Valve * The tricuspid valve is not well visualized, but is grossly normal. * There is no tricuspid stenosis. * There is trace tricuspid regurgitation. Aortic Valve * The aortic valve is trileaflet. * No hemodynamically significant valvular aortic stenosis. * There is no significant aortic regurgitation. Pulmonic Valve * The pulmonary valve is inadequately visualized, but the Doppler data is adequate for interpretation. * There is no pulmonic valvular stenosis. * There is no significant pulmonary regurgitation. Great Vessels * The aortic root is normal size. * Aortic arch of normal dimension. * Normal pulmonary venous flow pattern. Pericardium/Pleural * There is no pericardial effusion. Great Vessels * Normal inferior vena cava size and collapsability with sniff indicates a normal right atrial pressure of 3 mmHg MMode 2D Measurements and Calculations IVSd 1.5 cm IVSs 2.1 cm LVIDd 4.3 cm LVIDs 2.6 cm LVPWd 1.5 cm LVPWs 1.9 cm IVS/LVPW 1.0 FS 39.8 % EDV(Teich) 85.0 ml ESV(Teich) 25.0 ml EF(Teich) 70.6 % EDV(cubed) 81.8 ml ESV(cubed) 17.9 ml EF(cubed) 78.1 % % IVS thick 43.8 % % LVPW thick 28.3 % LV mass(C)d 254.9 grams LV mass(C)dI 135.4 grams/m\S\2 LV mass(C)s 227.9 grams LV mass(C)sI 121.1 grams/m\S\2 SV(Teich) 60.0 ml SI(Teich) 31.9 ml/m\S\2 SV(cubed) 64.0 ml SI(cubed) 34.0 ml/m\S\2 Ao root diam 3.3 cm Ao root area 8.5 cm\S\2 LA dimension 3.9 cm LA/Ao 1.2 LVAd ap4 27.0 cm\S\2 LVLd ap4 7.4 cm EDV(MOD-sp4) 82.7 ml EDV(sp4-el) 84.1 ml LVAs ap4 13.8 cm\S\2 LVLs ap4 6.5 cm ESV(MOD-sp4) 26.8 ml ESV(sp4-el) 25.1 ml EF(MOD-sp4) 67.6 % EF(sp4-el) 70.2 % SV(MOD-sp4) 55.9 ml SI(MOD-sp4) 29.7 ml/m\S\2 SV(sp4-el) 59.1 ml SI(sp4-el) 31.4 ml/m\S\2 Doppler Measurements and Calculations MV E max enrico 129.4 cm/sec MV A max enrico 90.6 cm/sec MV E/A 1.4 MV dec time 0.25 sec Ao V2 max 172.6 cm/sec Ao max PG 11.9 mmHg Ao max PG (full) 6.4 mmHg Ao V2 mean 111.9 cm/sec Ao mean PG 5.8 mmHg Ao V2 VTI 39.9 cm LV V1 max PG 5.5 mmHg LV V1 max 117.8 cm/sec SV(Ao) 339.9 ml SI(Ao) 180.5 ml/m\S\2 TR max enrico 286.3 cm/sec RVSP(TR) 36.0 mmHg RAP systole 3.0 mmHg
== END | disposition home or self-care (01) ==
LOC: C.CPL 12:24
PROVIDERS: ATTEND Nurse Practitioner Family
DX: I27.20 Pulmonary hypertension, unspecified (principal)

== ENCOUNTER → 2018-01-06 | Outpatient (CLI) | payer OTHER | END | disposition home or self-care (01) | LOC: C.LABSALHI 10:22 | PROVIDERS: ATTEND Psychiatry & Neurology Neurology | DX: G40.319 Generalized idiopathic epilepsy and epileptic syndromes, intractable, without status epilepticus (principal) ==

== ENCOUNTER → 2018-03-02 | Outpatient (CLI) | payer OTHER ==
[2018-03-02 12:59] LABS: ALBUMIN 3.5 gm/dl (3.4-5.0); ALT/SGPT 19 U/L (12-78); AST/SGOT 15 U/L (15-37); BLOOD UREA NITROGEN 17 mg/dl (7-18); CALCIUM 9.1 mg/dl (8.5-10.1); CARBON DIOXIDE 30 mmol/L (21-32); CHOLESTEROL 175 mg/dl (0-200); GLUCOSE 82 mg/dl (70-99); POTASSIUM 3.9 mmol/L (3.5-5.1); SODIUM 137 mmol/L (136-145)
[2018-03-02 13:02] LABS: ALKALINE PHOSPHATASE 127 U/L (45-117); LDL CHOLESTEROL CALCULATED 83 mg/dl; TOTAL PROTEIN 7.2 gm/dl (6.4-8.2)
== END | disposition home or self-care (01) ==
LOC: C.LABSALHI 10:19
PROVIDERS: ATTEND Nurse Practitioner Family
DX: I10 Essential (primary) hypertension (principal); E55.9 Vitamin D deficiency, unspecified

== ENCOUNTER → 2018-03-09 | Outpatient (CLI) | payer OTHER | END | disposition home or self-care (01) | LOC: C.LABSALHI 08:44 | PROVIDERS: ATTEND Psychiatry & Neurology Neurology | DX: G40.319 Generalized idiopathic epilepsy and epileptic syndromes, intractable, without status epilepticus (principal) ==

== ENCOUNTER → 2018-06-05 | Outpatient (CLI) | payer OTHER ==
[~2018-06-05] MED LIST changes: -CHOL1000 PO; +CHOL1TAB42 PO; -DLN100 PO; -HYDC25 PO; +HYDR25TA4 PO; +LAMO100T16 PO; +LEVE750T PO; -ONDA4TAB46 PO; -PHEN-488 PO; -POTA-327 PO; +POTA10CA28 PO; +TRMCR515 TOP; -ULT50X PO
--- NOTE | 2018-06-06 14:57 | MAMMOGRAPHY REPORT ---
BILATERAL DIGITAL SCREENING MAMMOGRAM TOMOSYNTHESIS WITH CAD: 06/05/2018 CLINICAL HISTORY: Routine screening. Patient has no complaints. TECHNIQUE: The study was acquired using full field digital technology and interpreted from soft copy. Breast tomosynthesis in addition to standard 2D mammography was performed. Current study was also ev aluated with a Computer Aided Detection (CAD) system. COMPARISON: Comparison is made to exams dated: 05/30/2017 mammogram, 05/27/2016 mammogram, 04/29/2015 mamm ogram, 04/22/2015 mammogram, 04/15/2015 mammogram, and 04/22/2015 ultrasound - [facility] ter. BREAST COMPOSITION: The tissue of both breasts is heterogeneously dense, which may obscure small mass es. FINDINGS: There are diffuse bilateral benign coarse, rounded rim calcifications. Mild vascular calci fication in the breasts as well. Stable nodular asymmetry in the lateral anterior left breast on the CC view. No suspicious mass, architectural distortion or cluster of microcalcifications is seen. IMPRESSION: ACR BI-RADS CATEGORY 1: NEGATIVE There is no mammographic evidence of malignancy. A 1 year screening mammogram is recommended.( [id number]) The patient will receive written notification of the results. Some breast cancers are not detected with mammography. A negative mammographic report should not elsie y biopsy if a clinically suggestive mass is present. Arcelia Torres M.D. ay/:06/05/2018 15:30:12 Plant Protection Officer: RT Nito(Thao)([place]), [facility] letter sent: Normal 1/2 BI-RADS Code: ACR BI-RADS Category 1: Negative
== END | disposition home or self-care (01) ==
LOC: C.MAMM 14:02
PROVIDERS: ATTEND Nurse Practitioner Family
DX: Z12.31 Encounter for screening mammogram for malignant neoplasm of breast (principal); M85.851 Other specified disorders of bone density and structure, right thigh; M85.852 Other specified disorders of bone density and structure, left thigh

== ENCOUNTER → 2018-06-13 | Outpatient (CLI) | payer OTHER | END | disposition home or self-care (01) | LOC: C.PAPS 19:12 | PROVIDERS: ATTEND Obstetrics & Gynecology | DX: Z01.419 Encounter for gynecological examination (general) (routine) without abnormal findings (principal); Z11.51 Encounter for screening for human papillomavirus (HPV) ==